=== PATIENT | male | born 1940 | race Caucasian/White ===

== ENCOUNTER 2020-05-16 08:36 | Outpatient (CLI) | payer MEDICARE, SELFPAY ==
--- NOTE | ~2020-05-16 | CT_ITS ---
EXAMINATION: CT shoulder LT wo con DATE: 05/16/2020 09:12 INDICATION: Left shoulder primary osteoarthritis. TECHNIQUE: Computed tomography (CT) of the left shoulder was performed without intravenous contrast. Automated exposure control and iterative reconstruction technique were employed. The dose-length prod uct was 521.10 mGy-cm. COMPARISON: Left shoulder radiographs 09/16/19 FINDINGS: Bone alignment is normal. No fracture. There is severe osteoarthritis of glenohumeral joint including bone volume loss of the glenoid. There is severe acromioclavicular joint osteoarthritis in cluding inferiorly directed osteophytes. There is no asymmetric fatty atrophy of the rotator cuff mus irais bellies. IMPRESSION: 1. Severe polyarticular osteoarthritis. Reviewed, dictated and finalized at location A. ERNESS GUIDE
== END 2020-05-16 08:37 | disposition home or self-care (01) ==
PROVIDERS: PCP Family Medicine; Visit Provider Orthopaedic Surgery
DX: M19.012 Primary osteoarthritis, left shoulder (principal)
CPT/HCPCS: 73200

== ENCOUNTER 2020-06-05 10:33 | Observation (INO) | payer MEDICARE, SELFPAY ==
[2020-06-05] VITALS (17 sets, daily range): BP systolic 92–129; BP diastolic 54–92; PULSE 59–78; RESP 14–20; TEMP 36.4–36.8; O2SAT 96–100; BMI 33.0
--- NOTE | ~2020-06-05 | US_ITS ---
EXAMINATION: US right upper quadrant DATE: 06/05/2020 14:57 INDICATION: Abnormal liver function tests. Alcohol abuse. Protuberant abdomen. TECHNIQUE: Multiple grayscale and Doppler ultrasound images of the abdomen were obtained. COMPARISON: None FINDINGS: The pancreatic head and body are normal in appearance. The pancreatic tail is not visualized. Liver has normal contour, with no definitive surface nodularity. There is increased parenchymal echogenicit y and coarsened echotexture consistent with diffuse hepatic steatosis. No liver lesion identified. N o intrahepatic biliary duct dilation suspected. Portal venous flow was seen in the hepatopetal, anthony l direction and has normal Doppler waveform. There is wall thickening measuring up to 5 mm of the flu id-filled but nondilated gallbladder. No cholelithiasis. Sonographic Brice sign was reported as nega tive by the clay grinder. Trace amount of pericholecystic fluid at the gallbladder fossa. Common bile duct measures 4 mm in diameter which is normal. The visualized proximal inferior vena cava is normal. Visualized portions of the right kidney demonstrate normal echogenicity and contour with no hydronep hrosis. IMPRESSION: 1. Diffuse hepatic steatosis without definitive surface nodularity to suggest cirrhosis 2. Gallbladder wall thickening and trace amount of pericholecystic fluid but without gallbladder dila tion, gallstones or sonographic Brice's to suggest acute cholecystitis. Differential would include m arrow edema related to liver disease, heart failure, renal failure or other generalized edema forming states, chronic cholecystitis or less likely acute acalculus cholecystitis. If there is clinical con cern for the latter could consider HIDA scan for further evaluation. 3. No intra or extra hepatic biliary ductal dilation. Reviewed, dictated and finalized at location . NATAL SPECIALIST IMPRESSION: 1. Diffuse hepatic steatosis without definitive surface nodularity to suggest c irrhosis 2. Gallbladder wall thickening and trace amount of pericholecystic fluid but wi thout gallbladder dilation, gallstones or sonographic Brice's to suggest acute cholecystitis. Differential would include marrow edema related to liver diseas e, heart failure, renal failure or other generalized edema forming states, air bag curer aditya cholecystitis or less likely acute acalculus cholecystitis. If there is cli nical concern for the latter could consider HIDA scan for further evaluation. 3. No intra or extra hepatic biliary ductal dilation.
--- NOTE | ~2020-06-05 | XR_ITS ---
EXAMINATION: XR chest 1V portable EXAM DATE: 06/05/2020 11:01 INDICATION: Chest pain, low blood pressure. TECHNIQUE: Portable AP frontal chest x-ray was obtained. Comparison is made to prior examination from 07/30/2016. FINDINGS: Sternotomy wires are present without findings to suggest sternal dehiscence. Mild cardiomeg sumeet. There is pulmonary vascular congestion. There is indistinct reticulation with a bibasal predomin ance which may indicate pulmonary edema. Small left pleural effusion. Pneumonia not excludable. There is no pneumothorax suspected. There are mild bony degenerative changes. IMPRESSION: 1. Congestive changes, possible mild CHF exacerbation. 2. Infection not excludable. Reviewed, dictated and finalized at location A. UDER OPERATOR HORIZONTAL
--- NOTE | 2020-06-05 10:36 | ED.ARRPALP ---
HPI - Arrhythmia/Palpitations General Chief Complaint: Arrhythmia/Palpitations Stated Complaint: svt Source: patient, family and EMS Mode of arrival: EMS History of Present Illness HPI narrative: Patient was sitting in the kitchen suddenly started having left chest pain, diaphoretic all over with nausea and feeling like he would like to have a bowel movement. EMT arrived, monitor showing SVT at 206 bpm, adenosine 6 mg and 12 mg given, no response, cardioversion 100 J, converted to normal sinus rhythm. EKG showing ST elevation in aVL, marked ST depression in the lateral leads and inferior leads. STEMI was called immediately. Repeated EKG on arrival to the emergency room showed normal sinus rhythm, first-degree heart block, no ST elevation, slight ST depression in the lateral leads. Related Data Home Medications Medication Instructions Recorded Confirmed aspirin 325 mg tablet 325 mg PO DAILY 06/17/19 03/17/20 cholecalciferol (vitamin D3) 125 5,000 unit PO DAILY 06/17/19 03/17/20 mcg (5,000 unit) capsule cyanocobalamin (vitamin B-12) 5,000 mcg PO DAILY 06/17/19 03/17/20 5,000 mcg capsule lisinopril 20 mg tablet 20 mg PO DAILY 06/17/19 03/17/20 metoprolol succinate 25 mg 12.5 mg PO BID tablet 06/17/19 03/17/20 tablet,extended release 24 hr Allergies Allergy/AdvReac Type Severity Reaction Status Date / Time No Known Allergies Allergy Mild Verified 06/05/20 10:43 Review of Systems Review of Systems: Narrative: CONSTITUTIONAL: Denies fever, chills, or sweats. EYES: Denies visual changes, redness, or discharge. ENT: Denies rhinorrhea, congestion, sore throat, or otalgia. CARDIOVASCULAR: Denies chest pain, palpitations, or edema. RESPIRATORY: Denies cough or dyspnea. GASTROINTESTINAL: Denies abdominal pain, nausea, vomiting, or diarrhea. GENITOURINARY: Denies dysuria or hematuria. SKIN: Denies rash or itching. MUSCULOSKELETAL: Denies back pain, joint pain, or myalgia. NEUROLOGIC: Denies headache, numbness, or weakness. PSYCHIATRIC: Denies anxiety or depression. [facility] Past Medical History Medical History ACL tear Atherosclerotic heart disease of [place] coronary artery with other forms of angina pectoris Encounter for immunization (04/17/18) Essential (primary) hypertension Mixed hyperlipidemia Obesity (BMI 30.0-34.9) Osteoarthritis of left shoulder Primary pulmonary hypertension Spinal stenosis, lumbar region with neurogenic claudication Testicular hypofunction Type 2 diabetes mellitus with hyperglycemia Unspecified atrial fibrillation Unspecified hearing loss Unspecified sleep apnea Surgical History Surgical History History of aortic valve repair History of cataract extraction (~11/05/17) History of hernia repair (~2007) History of knee replacement (~2003) History of maze procedure Hx of arthroscopy of knee (~1968) Hx of decompressive lumbar laminectomy (~11/01/14) Family History Family History Father Cerebrovascular accident Atrial fibrillation, chronic Arthritis Mother Diabetes mellitus Vascular disease Sibling Atrial fibrillation, chronic Kidney disease Social History Social History Smoking status: Never smoker Alcohol intake: current Exam Narrative: Exam Narrative: General appearance: Well-developed, well-nourished Skin: Normal color Head: Normocephalic, nontraumatic Eyes: Clear conjunctiva ENT: Oropharynx normal, ears normal, nose normal Neck: Supple, nontender Chest and respiratory: Airway patent, no respiratory distress, no accessory muscle use Heart: Regular rate/rhythm Abdomen: Soft, nontender, no organomegaly, quiet bowel sounds Vascular: Normal peripheral pulses, normal capillary refill. Musculoskeletal: Normal range of motion, nontender back Neurologic: Alert and orient
--- NOTE | 2020-06-05 10:37 | PC.NURSE ---
EKG done at 1035, shown to YANA
--- NOTE | 2020-06-05 10:41 | ECG_ITS ---
Measurements Intervals [place] Rate: 63 P: 75 MA: 263 QRS: 72 QRSD: 90 T: 79 QT: 472 QTc: 483 Interpretive Statements SINUS RHYTHM WITH FIRST DEGREE AV BLOCK VENTRICULAR PREMATURE COMPLEX ST ABNORMALITY IN ANTEROLAT/HIGH LAT LEADS- CONSIDER ISCHEMIA ABNORMAL ECG Electronically Signed On 06-05-2020 17:10:56 TELECOMMUNICATIONS EQUIPMENT INSTALLER by Kaden Cast D.O.
[2020-06-05 11:00] LABS: Basophils Absolute Auto 0.1 K/mm3 (0.0-0.1); Basophils Percent Auto 0.7 % (0.2-1.2); Eosinophils Absolute Auto 0.3 K/mm3 (0-0.3); Eosinophils Percent Auto 3.5 % (0-4.4); Hemoglobin 12.5 g/dL (14.0-18.0); Immature Granulocyte Absolute 0.07 K/mm3 (0.00-0.031); Immature Granulocyte Percent A 0.8 % (0-0.5); Lymphocytes Absolute Auto 2.23 K/mm3 (0.9-3.2); Lymphocytes Percent Auto 26.3 % (18.3-44.2); Mean Corpuscular HGB Conc 33.8 g/dl (32-36); Mean Corpuscular Hemoglobin 33.2 pg (26-34); Mean Corpuscular Volume 98.1 fl (80-100); Mean Platelet Volume 9.7 fl (7.4-10.4); Monocytes Absolute Auto 0.9 K/mm3 (0.1-0.6); Monocytes Percent Auto 10.3 % (2.6-8.5); Neutrophils Absolute Auto 4.9 K/mm3 (1.3-6.7); Neutrophils Percent Auto 58.4 % (45.5-73.1); Platelet Count Result 202 k/mm3 (150-375); Red Blood Count 3.77 M/mm3 (4.6-6.20); Red Cell Distribution Width 12.4 % (11.5-14.5); White Blood Count 8.5 K/mm3 (4.5-10.0)
[2020-06-05 11:09] LABS: Prothrombin Time 14.1 Seconds (11.1-14.7)
[2020-06-05 11:12] LABS: Alanine Aminotransferase 72 U/L (4-50); Alkaline Phosphatase 81 U/L (38-126); Anion Gap 9 mmol/L (8-16); Aspartate Amino Transferase 62 U/L (17-59); Bilirubin,Total 0.7 mg/dL (0.2-1.3); Blood Urea Nitrogen 18 mg/dL (9-20); Calcium 8.3 mg/dL (8.4-10.2); Carbon Dioxide 27 mmol/L (22-30); Chloride 100 mmol/L (98-107); Cholesterol 164 mg/dL (0-200); Estimated Glomerular Filt Rate > 60; Glucose 309 mg/dL (75-110); HDL Direct 53 mg/dL; Sodium 136 mmol/L (137-145); Triglycerides 107 mg/dL (<150)
[2020-06-05 11:23] LABS: LDL Cholesterol Direct 87 mg/dL
[2020-06-05 11:27] LABS: Troponin I 0.038 ng/mL (0.000-0.034)
--- NOTE | 2020-06-05 13:01 | PM.IMHP ---
H&P: HPI History of Present Illness Date/Time: 06/05/20 13:01 Chief complaint: STV/CP Narrative: Aj Palmer is a 80 year old male with a history of subacute bacterial endocarditis,bioprosthetic aortic valve replacement, and atrial fibrillation was in his usual state of health until the morning of June 05. He followed his usual routine. Got out of bed. Dressed. Make coffee. Put the laundry in the washer. Wiped down the counter tops. he said down at the kitchen table to enjoys coffee. He then experienced sudden onset of diaphoresis and foggy brain . He had [id number] left pectoral to substernal chest discomfort described as an ache. No associated shortness of breath palpitations syncope or presyncope. His , who is a retired nurse, call 911. Upon their arrival They found him to be in supraventricular tachycardia at 205 beats per minute. paramedics started an IV and gave him 6 mg of adenosine followed by 12 mg of adenosine. Because he field cardiovert and he remains symptomatic he underwent synchronized cardioversion with 100 joules. He converted back to sinus rhythm. His initial EKG was thought show some ST elevation in 1 AVL and depression in inferior and lateral leads. Repeat EKG however showed only mild inferolateral ST depression. Although initial STEMI was called, it was canceled after cardiology reviewed his EKG. After the cardioversion he remained asymptomatic. 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 Prior to his cardiac surgery in 2017, he was treated with 6 weeks of ceftriaxone and doxycycline. Preoperative coronary angiogram revealed no significant coronary atherosclerosis. he has never been a smoker. However he does drink 6-9 beers per day at least 6 days per week. He never drinks at home but only while out socializing. He plays golf multiple times per week and drinks up to 9 beers on those days. He has never experienced alcohol withdrawal, including no tremors sweats nausea diarrhea anxiety confusion or seizures. 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 Type 2 diabetes mellitus with hyperglycemia Unspecified atrial fibrillation Unspecified hearing loss Unspecified sleep apnea Surgical History Surgical History History of aortic valve repair History of cataract extraction (~11/05/17) History of hernia repair (~2007) History of knee replacement (~2003) History of maze procedure Hx of arthroscopy of knee (~1968) Hx of decompressive lumbar laminectomy (~11/01/14) Family History Family History Father Cerebrovascular accident Atrial fibrillation, chronic Arthritis Mother Diabetes mellitus Vascular disease Sibling Atrial fibrillation, chronic Kidney disease Social History Social History Smoking status: Never smoker Alcohol intake: current Drinks per week: 6 Substance use: never Substance use type: does not use Meds Home Medications and Allergies Home Medications Medication Instructions Recorded Confirmed Type aspirin 325 mg tablet 325 mg PO DAILY 06/17/19 06/05/20 History chol
--- NOTE | 2020-06-05 13:13 | ADMGEN ---
This patient, Aj Palmer, was admitted to IMU Room 202-01. Patient/family oriented to hospital policies and general routines including ID bracelet, bed and alarms, visiting hours, pain management, procedures, bathroom and other care routines, personal items, smoking policy, room service/diet, and visiting hours. Information on how to activate the Rapid Response Team has been discussed. Patient/Family are encouraged to report perceived risks to care and to ask questions if they do not understand what they are told or what they should do.
[2020-06-05 14:15] LABS: Troponin I 0.223 ng/mL (0.000-0.034)
[2020-06-05 14:41] LABS: CRP < 0.5 mg/dL (<1.0); Magnesium 1.9 mg/dL (1.6-2.3)
[2020-06-05 14:50] LABS: Iron 140 ug/dL (49-181)
[2020-06-05 14:59] LABS: Percent Iron Saturation 38 % (20-50)
[2020-06-05 15:21] LABS: Hepatitis B Surface Antigen Negative (Negative)
[2020-06-05 15:46] LABS: Folic Acid > 20.0 ng/mL (2.76->20); Vitamin B12 > 1000.0 pg/mL (239-931)
[2020-06-05 15:46] LABS: HAV RESULT Negative (Negative); Hepatitis B Core IgM Result Negative (Negative)
[2020-06-05 15:57] LABS: Hepatitis C Virus Antibody Negative (Negative)
[2020-06-05 16:44] LABS: Glucose Point of Care 138 (65-105)
[2020-06-05] MEDS: metFORMIN HCL 500 MG TABLET PO (17:12)
[2020-06-05] MEDS: ENOXAPARIN 40 MG/0.4 ML SYRINGE SUB-Q (17:13)
[2020-06-05 17:18] LABS: Troponin I 0.532 ng/mL (0.000-0.034)
[2020-06-05 18:31] LABS: Immature Reticulocyte Fraction 12.6 % (3.0-15.9); Reticulocyte Hemoglobin Conten 37.6 pg (28.2-35.7); Reticulocyte Percent 1.66 % (0.7-4.3); Reticulocytes Absolute 0.06 B/L (32.2-175.7)
[2020-06-05 20:02] LABS: Glucose Point of Care 126 (65-105)
[2020-06-05] MEDS: METOPROLOL SUCCINATE EXT REL 50 MG TABCR PO (20:35)
[2020-06-06] VITALS (17 sets, daily range): BP systolic 122–152; BP diastolic 66–83; PULSE 58–75; RESP 18–22; TEMP 35.9–37; O2SAT 97–99
--- NOTE | 2020-06-06 | ECHO_ITS ---
Patient Info Name: Aj Palmer Age: 80 years : 1940 Gender: Male Ht: 70 in Wt: 230 lbs BSA: 2.30 m2 HR: 72 bpm BP: 136 / 74 mmHg Heart Rhythm: Sinus Rhythm Technical Quality: Good Exam Date: 06/06/2020 8:28 AM Exam Location: [facility] Patient Status: Inpatient Admit Date: 06/05/2020 Staff Ordering Physician: Wesley Hou MD C 13 Catapult Operator: Amy Pimentel RDCS Attending Provider: Evangelista Estes MD Referring Physician: Ameya SMITH; Exam Type: CA echo doppler color flow Study Info Indications - BIOPROSTHESTIC AORTIC VALVE - [place] PSVT Complete two-dimensional, color flow and Doppler transthoracic echocardiogram is performed. Summary 1. Complete two-dimensional, color flow and Doppler transthoracic echocardiogram is performed. 2. Left ventricular chamber dimension is normal. 3. Left ventricular systolic function is normal, estimated at 60-65%. 4. Left atrial chamber dimension is mildly enlarged. 5. Aortic valve is a normally appearing and functioning bioprosthetic device. Left Ventricle Left ventricular chamber dimension is normal. Left ventricular systolic function is normal, estimated at 60-65%. Left ventricular septal wall motion is normal. The left ventricular diastolic function is normal. Right Ventricle Right ventricular chamber dimension is normal. Left Atria Left atrial chamber dimension is mildly enlarged. Right Atria Right atrial chamber dimension is normal. Aortic Valve Aortic valve is a normally appearing and functioning bioprosthetic device. Pulmonic Valve The pulmonic valve is not well visualized. Mitral Valve The mitral valve has normal leaflets. There is mild to moderate mitral valve regurgitation. The mitral valve annulus is mildly calcified. Tricuspid Valve The tricuspid valve leaflets are normal. There is trace tricuspid valve regurgitation. Pericardium/Pleural The pericardium appears normal. Aorta The aortic root size at the sinus of Valsalva is normal. Left Ventricular Outflow Tract Name Value Normal LVOT 2D LVOT Diameter 2.0 cm LVOT Doppler LVOT Peak Gradient 6 mmHg LVOT Mean Gradient 3 mmHg LVOT VTI 31 cm LVOT VTI/AV VTI Ratio 0.5 LVOT Stroke Volume 98 ml LVOT CO 5.5 l/min LVOT CI 2.4 l/min/m2 Pulmonic Valve Name Value Normal RVOT Doppler RVOT Peak Gradient 2 mmHg PV Doppler PV Peak Gradient 3 mmHg Mitral Valve Name Value
[2020-06-06 04:28] LABS: Hematocrit 35.7 % (42.0-52.0); Hemoglobin 12.3 g/dL (14.0-18.0); Mean Corpuscular HGB Conc 34.5 g/dl (32-36); Mean Corpuscular Hemoglobin 32.4 pg (26-34); Mean Corpuscular Volume 93.9 fl (80-100); Mean Platelet Volume 9.4 fl (7.4-10.4); Platelet Count Result 202 k/mm3 (150-375); Red Cell Distribution Width 12.2 % (11.5-14.5); White Blood Count 8.3 K/mm3 (4.5-10.0)
[2020-06-06 04:44] LABS: Alanine Aminotransferase 64 U/L (4-50); Albumin Level 3.8 g/dL (3.5-5.1); Alkaline Phosphatase 66 U/L (38-126); Anion Gap 6 mmol/L (8-16); Aspartate Amino Transferase 35 U/L (17-59); Bilirubin,Total 0.5 mg/dL (0.2-1.3); Blood Urea Nitrogen 14 mg/dL (9-20); Calcium 8.8 mg/dL (8.4-10.2); Carbon Dioxide 30 mmol/L (22-30); Chloride 100 mmol/L (98-107); Estimated CRCL calculation 71 ml/min; Estimated Glomerular Filt Rate > 60; Glucose 122 mg/dL (75-110); Sodium 136 mmol/L (137-145)
[2020-06-06 07:14] LABS: Glucose Point of Care 130 (65-105)
[2020-06-06 08:36] LABS: Free T4 Free Thyroxine Reflex 1.01 ng/dL (0.78-2.19)
[2020-06-06] MEDS: CYANOCOBALAMIN 1,000 MCG TABLET 5000 MCG PO (09:17)
[2020-06-06] MEDS: THIAMINE HCL 100 MG TABLET PO (09:17)
[2020-06-06] MEDS: ASPIRIN 325 MG TABLET PO (09:17)
[2020-06-06] MEDS: THERAPEUTIC MULTIVITAMINS/MINERALS TAB (*BKC) 1 TABLET PO (09:17)
[2020-06-06] MEDS: CHOLECALCIFEROL 1,000 UNITS TABLET 5000 UNITS PO (09:17)
[2020-06-06] MEDS: FOLIC ACID 1 MG TABLET PO (09:18)
[2020-06-06] MEDS: lisinopriL 20 MG TABLET PO (09:18)
[2020-06-06] MEDS: buPROPion HCL XL (24 HR) 150 MG TABCR 300 MG PO (09:18)
[2020-06-06] MEDS: metFORMIN HCL 500 MG TABLET PO ×2 (09:18→13:17)
[2020-06-06] MEDS: ATORVASTATIN 20 MG TABLET PO (09:18)
[2020-06-06 10:01] LABS: Total Triiodothyronine (T3) 1.27 NG/ML (0.97-1.69)
[2020-06-06 11:59] LABS: Glucose Point of Care 182 (65-105)
--- NOTE | 2020-06-06 12:16 | PM.CNCAR ---
Assessment and Plan Additional Plan 80-year-old man with history of aortic valve endocarditis several years ago leading to the need for aortic valve replacement. He has a bioprosthetic valve and it seems to be functioning normally by recent echocardiography. He did have a significant cardiomyopathy at the time of surgery but that appears to have recovered by subsequent echoes his recent ejection fractions have been normal. According to the record he is known not to have any coronary artery disease at least a couple of years ago when he had his aortic valve replacement. He presents yesterday with symptomatic wide QRS tachycardia. The heart rate was in the vicinity of 250 beats per minute and was a monomorphic wide QRS tachycardia which did not respond to adenosine but did respond to DC cardioversion. Since then he has been asymptomatic. It is of course my concern that this was a episode of ventricular tachycardia and hopefully the electrocardiogram from the field which I am describing can be located. I will increase his beta-loltia dosage empirically to 50 mg q.12 hours and review today's echocardiogram. If he is known to have good LV function and no coronary disease then I would start out treating this with a more aggressive dose of beta-lolita and consulted asic engineer either at [place] are at [facility] for further evaluation of this. Hopefully the staff can locate the electrocardiogram that I am describing which would be very important for electrophysiological consult in to review Gary Chopra MD [facility] History of Present Illness History of Present Illness Consult date/time: 06/06/20 12:16 Reason For Visit: STV/CP Narrative: This is a pleasant 80-year-old man I am seeing at the request of the hospitalist because of arrhythmias with which she presented yesterday around mid day through the emergency room. The patient states he was in his usual state of good health was having a pleasant morning preparing coffee in his kitchen and doing other normal activities when suddenly he felt unwell. He states that he noticed the sense of lightheadedness and diaphoresis he states he was sweating significantly and obviously knew something was wrong. His who is a registered nurse who is a retired tried to take his pulse and found to be extremely fast where she could not count it and so she became of course concerned and called 911. EMS arrived at his home and found him to be in are very rapid regular tachycardia. They called this arrhythmia SVT and thusly treated him with adenosine 6 mg and then 12 mg with no response. He then was cardioverted with 100 joules which restored normal sinus rhythm. He was then transported to the emergency room. After being cardioverted he states he very rapidly felt much better. He arrived in the emergency room and the electrocardiogram after cardioversion showed some diffuse ST and T changes at which time the ED staff were declaring this to be an ST-elevation NM. I happened to be here in the hospital and I looked at the tracings and did not believe there was an ST-elevation NM. As time went on he recover the ST and T changes resolved and he was asymptomatic. I did see the rhythm strip from the EMS which showed a monomorphic wide QRS tachycardia. It was therefore my concern that this may not have been supraventricular tachycardia given the lack of response to a dentist in and requiring electrical termination. Patient is asymptomatic since being admitted states he feels well and has no other complaints today. He does have a significant cardiac history with a history of aortic valve disease he was found in 2017 to have atrial fibrillation. He was found to have severe aortic valve regurgitation which was felt to be due to partially treated bacterial endocarditis. After that was treated he underwent aortic valve replacement in September of 2016 at [facility] by Dr. Bonilla who also performed an intraoperative Maze
--- NOTE | 2020-06-06 13:50 | WPDCARDPROC ---
Cardiac Cath Procedure Note Date of procedure:: 06/06/20 Performing physician:: Gary Chopra MD Indication:: non ST-elevation MS
--- NOTE | 2020-06-06 14:42 | PM.PNCARD ---
Progress Note: A&P Additional Plan 80-year-old white male with: Valvular heart disease status post aortic valve replacement 3 years ago with previously depressed LV function which recovered following surgery. Patient now presents abruptly with wide QRS tachycardia and the need to be electrically cardioverted in the field. Will plan on coronary angiography tomorrow to ensure there is no ischemic basis to these arrhythmias. Following that procedure electrophysiology consultation will be arranged if there is no ischemic burden Gary Chopra MD [facility] Subjective Date/time seen: Date of service: 06/06/20 14:42 Interval history: Follow-up visit in this 80-year-old man with a history of aortic valve replacement in 2017 and significant left ventricular dysfunction which improved following valve replacement. No coronary artery disease at that time. Patient presented with an episode of symptomatic wide QRS tachycardia most concerning for VT. Discussion with the patient again this afternoon after the echocardiogram has been read. He still has normal left ventricular systolic function and a normally functioning aortic valve bioprosthesis. The wide QRS tachycardia that had to be terminated electrically would of course raise the Specter of ischemic mediated arrhythmias and as such a follow-up angiogram should be recommended. While he is in the hospital I am going to recommend arranging for that to be done tomorrow morning. Depending on those findings referral to an slitter and rewinder will be recommended. Objective Data Vital Signs Vital Signs: Vital Signs - 24 hr 06/05/20 16:00 06/05/20 18:00 06/05/20 20:00 Temperature 36.8 C Pulse Rate 64 69 72 Respiratory Rate 18 18 Blood Pressure 115/66 123/65 Pulse Oximetry 97 97 06/05/20 20:02 06/05/20 20:35 06/05/20 22:00 Temperature 36.7 C Pulse Rate 66 68 68 Respiratory Rate 18 Blood Pressure 123/65 Pulse Oximetry 97 06/05/20 23:09 06/05/20 23:12 06/06/20 00:00 Temperature 37.0 C Pulse Rate 66 78 69 Respiratory Rate 18 14 22 H Blood Pressure 123/65 129/74 Pulse Oximetry 97 96 98 06/06/20 01:40 06/06/20 04:00 06/06/20 06:00 Temperature 36.5 C Pulse Rate 69 58 L 65 Respiratory Rate 22 H Blood Pressure 136/74 Pulse Oximetry 99 06/06/20 07:05 06/06/20 08:00 06/06/20 12:00 Temperature 36.0 C L 36.6 C Pulse Rate 66 67 63 Respiratory Rate 22 H 20 Blood Pressure 122/81 152/72 H Pulse Oximetry 97 99 Intake/Output Intake/Output: Intake & Output 06/03/20 06/04/20 06/05/20 06/06/20 23:59 23:59 23:59 23:59 Intake Total 240 Output Total 2801 899 Balance -2380 -803 Meds/Results Medications: Active Medications Generic Name Dose Route Start Last Admin Trade Name Freq PRN Reason Stop Dose Admin Acetaminophen 1,000 mg 06/05/20 14:02 Acetaminophen 500 Mg Tablet PO Q6H PRN Mild to Moderate Pain Aspirin 325 mg 06/06/20 09:00 06/06/20 09:17 Aspirin 325 Mg Tablet PO 325 mg DAILY RADU Administration Atorvastatin Calcium 20 mg 06/06/20 09:00 06/06/20 09:18 Atorvastatin 20 Mg Tablet PO 20 mg DAILY RADU Administration Bupropion HCl 300 mg 06/06/20 09:00 06/06/20 09:18 Bupropion Hcl Xl (24 Hr) 150 Mg Tabcr PO 300 mg QAM RADU Administration Cyanocobalamin 5,000 mcg 06/06/20 09:00 06/06/20 09:17 Cyanocobalamin 1,000 Mcg Tablet PO 5,000 mcg QAM RADU Administration Dextrose 12.5 gm 06/05/20 15:08 Dextrose 50% 25 Gm/50 Ml Syringe IV PUSH PRN PRN Hypoglycemia Protocol Enoxaparin Sodium 40 mg 06/05/20 18:00 06/05/20 17:13 Enoxaparin 40 Mg/0.4 Ml Syringe SUB-Q 40 mg QPM RADU Administration Folic Acid 1 mg 06/06/20 09:00 06/06/20 09:18 Folic Acid 1 Mg Tablet PO 1 mg DAILY RADU Administration Glucagon 1 mg 06/05/20 15:08 Glucagon For Inj 1 Mg Vial IM PRN PRN Hypoglycemia Protocol Glucose 15 gm 06/05/20 15:08
--- NOTE | 2020-06-06 16:17 | P.PNIM_ITS ---
Progress Note: A&P Assessment and Plan (1) SVT (supraventricular tachycardia): Code(s): I47.1 - Supraventricular tachycardia Status: Acute Assessment and Plan: * resolved after 100 joule cardioversion * alcohol abuse may be contributing * primary myocardial ischemia is unlikely but has to be ruled out * thyroid disease is clinically unlikely and TSH is normal * encouraged moderation of alcohol intake * increase metoprolol from 25 to 50 mg daily * cardiology concerned may be V-tach rather than SVT and cardiac catheterization planned for 06/07 to rule out ischemia as cause (2) History of aortic valve repair: Code(s): Z98.890 - Other specified postprocedural states; Z86.79 - Personal history of other diseases of the circulatory system Status: Acute Assessment and Plan: * no signs or symptoms of valvular insufficiency Repeat echo EF 60% with normal functioning bioprosthetic valve and no wall motion abnormalities (3) Unspecified atrial fibrillation: Code(s): I48.91 - Unspecified atrial fibrillation Status: Acute Assessment and Plan: * No known episodes since 2017 Maze procedure (4) Osteoarthritis of left shoulder: Qualifiers: Osteoarthritis type: post-traumatic Qualified Code(s): M19.112 - Post- traumatic osteoarthritis, left shoulder Code(s): M19.012 - Primary osteoarthritis, left shoulder Status: Chronic Assessment and Plan: * Analgesics prn (5) Alcohol abuse: Code(s): F10.10 - Alcohol abuse, uncomplicated Status: Acute Assessment and Plan: * CIWA protocol with PRN lorazepam * Thiamine folate, MVI * Dr. Hou Discussed need to limit his alcohol intake to no more than 1 serving per 24 hours * He responded that he might be able to cut down to 3 or 4 but not 1 or 2. (6) Controlled type 2 diabetes mellitus: Code(s): E11.9 - Type 2 diabetes mellitus without complications Status: Acute Assessment and Plan: * metformin on hold and monitor sugars * sliding scale aspartate * A1c was 6.8, however he was hyperglycemic at 309 upon presentation * given his history of hyperlipidemia and type 2 diabetes, statin therapy would be appropriate (7) Hypertension: Code(s): I10 - Essential (primary) hypertension Status: Acute Assessment and Plan: * continue lisinopril and metoprolol (8) Anemia: Code(s): D64.9 - Anemia, unspecified Status: Acute Assessment and Plan: * present since at least 2017 * last colonoscopy at age 67 * iron TIBC and blood B12 all normal (9) Abnormal liver enzymes: Code(s): R74.8 - Abnormal levels of other serum enzymes Status: Acute Assessment and Plan: * pattern is atypical for alcohol-induced hepatitis * screen for hepatitis AB and C is negative * ultrasound liver hepatic steatosis with no nodularity of the surface * follow-up lab LFTs approaching normal Subjective Date/time seen: 06/06/20 16:17 Interval history: 80-year-old gentleman with bioprosthetic aortic valve 3 years ago after SBE with normal coronaries at that time presented to the hospital with acute onset tachycardia accompanied by diaphoresis and lightheadedness. Initially felt to be SVT but was wide complex and and converted with cardioversion but not adenosine.. He has had no further symptomatology and feels well. Exam Narrative: Exam Narrative: Blood pressure 152/72 pulse is 62 saturating 93% on room air afebrile HEENT: , PERRL, sclerae nonicteric, N
--- NOTE | 2020-06-06 16:17 | PM.IMPN ---
Progress Note: A&P Assessment and Plan (1) SVT (supraventricular tachycardia): Code(s): I47.1 - Supraventricular tachycardia Status: Acute Assessment and Plan: resolved after 100 joule cardioversion alcohol abuse may be contributing primary myocardial ischemia is unlikely but has to be ruled out thyroid disease is clinically unlikely and TSH is normal encouraged moderation of alcohol intake increase metoprolol from 25 to 50 mg daily cardiology concerned may be V-tach rather than SVT and cardiac catheterization planned for 06/07 to rule out ischemia as cause (2) History of aortic valve repair: Code(s): Z98.890 - Other specified postprocedural states; Z86.79 - Personal history of other diseases of the circulatory system Status: Acute Assessment and Plan: no signs or symptoms of valvular insufficiency Repeat echo EF 60% with normal functioning bioprosthetic valve and no wall motion abnormalities (3) Unspecified atrial fibrillation: Code(s): I48.91 - Unspecified atrial fibrillation Status: Acute Assessment and Plan: No known episodes since 2017 Maze procedure (4) Osteoarthritis of left shoulder: Qualifiers: Osteoarthritis type: post-traumatic Qualified Code(s): M19.112 - Post-traumatic osteoarthritis, left shoulder Code(s): M19.012 - Primary osteoarthritis, left shoulder Status: Chronic Assessment and Plan: Analgesics prn (5) Alcohol abuse: Code(s): F10.10 - Alcohol abuse, uncomplicated Status: Acute Assessment and Plan: CIWA protocol with PRN lorazepam Thiamine folate, MVI Dr. Hou Discussed need to limit his alcohol intake to no more than 1 serving per 24 hours He responded that he might be able to cut down to 3 or 4 but not 1 or 2. (6) Controlled type 2 diabetes mellitus: Code(s): E11.9 - Type 2 diabetes mellitus without complications Status: Acute Assessment and Plan: metformin on hold and monitor sugars sliding scale aspartate A1c was 6.8, however he was hyperglycemic at 309 upon presentation given his history of hyperlipidemia and type 2 diabetes, statin therapy would be appropriate (7) Hypertension: Code(s): I10 - Essential (primary) hypertension Status: Acute Assessment and Plan: continue lisinopril and metoprolol (8) Anemia: Code(s): D64.9 - Anemia, unspecified Status: Acute Assessment and Plan: present since at least 2017 last colonoscopy at age 67 iron TIBC and blood B12 all normal (9) Abnormal liver enzymes: Code(s): R74.8 - Abnormal levels of other serum enzymes Status: Acute Assessment and Plan: pattern is atypical for alcohol-induced hepatitis screen for hepatitis AB and C is negative ultrasound liver hepatic steatosis with no nodularity of the surface follow-up lab LFTs approaching normal Subjective Date/time seen: 06/06/20 16:17 Interval history: 80-year-old gentleman with bioprosthetic aortic valve 3 years ago after SBE with normal coronaries at that time presented to the hospital with acute onset tachycardia accompanied by diaphoresis and lightheadedness. Initially felt to be SVT but was wide complex and and converted with cardioversion but not adenosine.. He has had no further symptomatology and feels well. Exam Narrative: Exam Narrative: Blood pressure 152/72 pulse is 62 saturating 93% on room air afebrile HEENT: , PERRL, sclerae nonicteric, NECK: Supple CHEST: Clear to auscultation.. HEART: NL S1/S2, regular, 2/6 right upper sternal border systolic ejection murmur without radiation ABDOMEN: BS+, soft, nontender, no mass, no bruits EXTREMITIES: No edema, dorsalis pedis posterior tibial 1+ NEUROLOGIC: Alert cooperative no focal deficits. Objective Data Vital Signs Vital Signs: Vital Signs - 24 hr 06/05/20 18:00 06/05/20 20:00 06/05/20 20:02 Te
[2020-06-06 16:34] LABS: Glucose Point of Care 110 (65-105)
[2020-06-06] MEDS: METOPROLOL SUCCINATE EXT REL 50 MG TABCR PO ×2 (17:52→20:21)
[2020-06-06] MEDS: ENOXAPARIN 40 MG/0.4 ML SYRINGE SUB-Q (17:53)
[2020-06-06 20:44] LABS: Glucose Point of Care 180 (65-105)
[2020-06-07] VITALS (19 sets, daily range): BP systolic 122–157; BP diastolic 74–91; PULSE 51–68; RESP 10–20; TEMP 36.6–36.8; O2SAT 95–100
[2020-06-07 05:50] LABS: Alanine Aminotransferase 54 U/L (4-50); Alkaline Phosphatase 65 U/L (38-126); Anion Gap 6 mmol/L (8-16); Aspartate Amino Transferase 29 U/L (17-59); Bilirubin,Total 0.5 mg/dL (0.2-1.3); Blood Urea Nitrogen 16 mg/dL (9-20); Calcium 9.3 mg/dL (8.4-10.2); Carbon Dioxide 32 mmol/L (22-30); Chloride 99 mmol/L (98-107); Estimated CRCL calculation 71 ml/min; Estimated Glomerular Filt Rate > 60; Glucose 138 mg/dL (75-110); Potassium 3.9 mmol/L (3.4-5.0); Sodium 137 mmol/L (137-145)
--- NOTE | 2020-06-07 08:47 | WPDMODSED ---
Moderate Sedation Note-Pt Data Patient Data Allergies Allergy/AdvReac Type Severity Reaction Status Date / Time No Known Allergies Allergy Mild Verified 06/05/20 10:43 Home Medications Medication Instructions Recorded Confirmed Type aspirin 325 mg tablet 325 mg PO DAILY 06/17/19 06/05/20 History cholecalciferol (vitamin D3) 125 5,000 unit PO DAILY 06/17/19 06/05/20 History mcg (5,000 unit) capsule cyanocobalamin (vitamin B-12) 5,000 mcg PO DAILY 06/17/19 06/05/20 History 5,000 mcg capsule lisinopril 20 mg tablet 20 mg PO DAILY 06/17/19 06/05/20 History metoprolol succinate 25 mg 25 mg PO BID tablet 06/17/19 06/05/20 History tablet,extended release 24 hr metformin 500 mg tablet 500 mg PO TID #270 tablet 12/28/19 06/05/20 Rx bupropion HCl 300 mg PO QAM 06/05/20 06/05/20 History Current Medications: Active Medications Acetaminophen (Acetaminophen 500 Mg Tablet) 1,000 mg PO Q6H PRN PRN Reason: Mild to Moderate Pain Aspirin (Aspirin 325 Mg Tablet) 325 mg PO DAILY [facility] Last Admin: 06/06/20 09:17 Dose: 325 mg Documented by: Atorvastatin Calcium (Atorvastatin 20 Mg Tablet) 20 mg PO DAILY [facility] Last Admin: 06/06/20 09:18 Dose: 20 mg Documented by: Bupropion HCl (Bupropion Hcl Xl (24 Hr) 150 Mg Tabcr) 300 mg PO QAM [facility] Last Admin: 06/06/20 09:18 Dose: 300 mg Documented by: Cyanocobalamin (Cyanocobalamin 1,000 Mcg Tablet) 5,000 mcg PO QAM [facility] Last Admin: 06/06/20 09:17 Dose: 5,000 mcg Documented by: Dextrose (Dextrose 50% 25 Gm/50 Ml Syringe) 12.5 gm IV PUSH PRN PRN; Protocol PRN Reason: Hypoglycemia Enoxaparin Sodium (Enoxaparin 40 Mg/0.4 Ml Syringe) 40 mg SUB-Q QPM [facility] Last Admin: 06/06/20 17:53 Dose: 40 mg Documented by: Folic Acid (Folic Acid 1 Mg Tablet) 1 mg PO DAILY [facility] Last Admin: 06/06/20 09:18 Dose: 1 mg Documented by: Glucagon (Glucagon For Inj 1 Mg Vial) 1 mg IM PRN PRN; Protocol PRN Reason: Hypoglycemia Glucose (Glucose Oral Gel 15 Gm Of Glucse In 37.5 Gm Tube) 15 gm PO PRN PRN; Protocol PRN Reason: Hypoglycemia Dextrose (Dextrose 5% 1,000 Ml) 1,000 mls @ 100 mls/hr IVPB PRN PRN; Protocol PRN Reason: Hypoglycemia Insulin Aspart (Insulin Aspart (*Bkc) 100 Units/Ml) 3 - 6 units SUB-Q TIDWM [facility]; Protocol Last Admin: 06/06/20 17:51 Dose: Not Given Documented by: Lisinopril (Lisinopril 20 Mg Tablet) 20 mg PO DAILY [facility] Last Admin: 06/06/20 09:18 Dose: 20 mg Documented by: Lorazepam (Lorazepam Inj (*Crx) 2 Mg/Ml Vial) 1 mg IV PUSH Q4HR PRN PRN Reason: CIWA score 8 or more Metoprolol Succinate (Metoprolol Succinate Ext Rel 50 Mg Tabcr) 50 mg PO Q12HR [facility] Last Admin: 06/06/20 20:21 Dose: 50 mg Documented by: Multivitamins/Calcium (Therapeutic Multivitamins/Minerals Tab (*Bkc)) 1 tablet [facility] Last Admin: 06/06/20 09:17 Dose: 1 tablet Documented by: Thiamine HCl (Thiamine Hcl 100 Mg Tablet) 100 mg PO QAM [facility] Last Admin: 06/06/20 09:17 Dose: 100 mg Documented by: Vitamin D (Cholecalciferol 1,000 Units Tablet) 5,000 units PO DAILY [facility] Last Admin: 06/06/20 09:17 Dose: 5,000 units Documented by: Sedation/Anesthesia: No previous sedation/anesthesia problems (including family history). [facility], [facility] Past Medical History Medical History (Updated 06/05/20 @ 13:56 by Wesley Hou MD) ACL tear Atherosclerotic heart disease of [place] coronary artery with other forms of angina pectoris Encounter for immunization (04/17/18) Essential (primary) hypertension Mixed hyperlipidemia Obesity (BMI 30.0-34.9) Osteoarthritis of left shoulder Primary pulmonary hypertension Spinal stenosis, lumbar region with neurogenic claudication Testicular hypofunction Type 2 diabetes mellitus with hyperglycemia Unspecified atrial fibrillation Unspecified hearing loss Unspecified sleep apnea Surgical History Surgical History History of aortic valve repair History of cataract extraction (~11/05/17) History of hernia repai
--- NOTE | 2020-06-07 08:48 | WPDHPUPDATE1 ---
History and Physical Update Update Date/Time: 06/07/20 08:48 History and Physical has been reviewed, including an updated exam of the patient. There are NO changes in the patient's condition. Risks, benefits, and alternatives have been discussed and questions answered. Patient agrees to proceed with procedure.
[2020-06-07 09:13] LABS: Glucose Point of Care 171 (65-105)
--- NOTE | 2020-06-07 09:17 | WPDCARDPROC ---
Cardiac Cath Procedure Note Date of procedure:: 06/07/20 Performing physician:: Ector Calabrese MD Procedure Procedure note:: CORONARY ANGIOGRAM REPORT DATE OF PROCEDURE: 05/07/2020 INDICATION FOR PROCEDURE: wide complex tachycardia; rule out obstructive CAD BRIEF CLINICAL HISTORY: 80-year-old male with history of aortic valve endocarditis and atrial fibrillation, status post bioprosthetic AVR and Maze in September 2016-operative report not available; history of LV systolic dysfunction with improvement in the LVEF over time, type 2 diabetes mellitus. Patient was brought to [facility] on 06/05/2020 after patient felt diaphoretic and weak. Apparently, patient was found to be in wide complex tachycardia with heart rates into 200s, which did not respond to incremental doses of at nursing, and subsequently required cardioversion. In the ER, his EKG showed sinus rhythm, first-degree AV block, PVCs, nonspecific ST-T abnormality. Patient's troponins were minimally elevated. He was referred for coronary angiogram to rule out any significant obstructive CAD before electrophysiology evaluation. Benefits and risks of the procedure were discussed with the patient in depth, and informed consent was obtained prior to the procedure. Risks of the procedure include but are not limited to vascular complications including groin hematoma, retroperitoneal bleed, vessel perforation; periprocedural AK, cardiac arrhythmias, stroke, contrast induced nephropathy, and . After discussing all the benefits, risks and alternatives, patient was willing to proceed with the procedure. PROCEDURES PERFORMED: 1. Selective left and right coronary angiogram 2. Selective right common femoral angiogram and deployment of Angio-Seal hemostatic device 3. Moderate sedation-CPT code 56983 MODERATE SEDATION: Midazolam 1 mg; fentanyl 24 mcg; Start time 0850 , Stop time 0907 ; Total [id number] time 17 minutes; Manisha Maldonado RN was trained observer for moderate sedation. ACCESS SITE: Right common femoral artery PROCEDURE NOTE: After obtaining informed consent, patient was brought to catheterization lab and prepped and draped in a usual sterile manner. After local anesthesia with lidocaine, right common femoral artery access was taken with micropuncture needle followed by insertion of a 6 [place] sheath. Selective left and right coronary angiogram was performed using 5 [place]ian JL4 and JR4 catheters respectively. Orthogonal views were taken. Left ventriculogram was not performed. Finally, selective right common femoral angiogram was performed followed by successful deployment of Angio-Seal vascular closure device. Patient tolerated procedure well without any immediate procedure related complications. FINDINGS: LEFT MAIN CORONARY: The left main coronary artery is a medium caliber vessel, angiographically significant focal stenosis seen. The vessel bifurcates into LAD and left circumflex branches. LEFT ANTERIOR DESCENDING ARTERY: The LAD is a medium to large caliber vessel in the proximal segment, tapers in the mid and distal segment, and the, the small caliber vessel, diminutive vessel in the distal segment. There are minor irregularities in the proximal and mid LAD. The major diagonal branch is a medium-sized vessel with minor irregularities. LEFT CIRCUMFLEX ARTERY: The left circumflex artery is a medium caliber vessel, continues as OM branch which is tortuous in the distal segment. There are minor irregularities in the proximal segment. RIGHT CORONARY ARTERY: The right coronary artery is a large caliber, dominant vessel with minor irregularities in the proximal segment. The vessel gives rise to medium - large caliber PDA branch and medium caliber PL branch with mildl narrowing at the ostium. LEFT VENTRICULOGRAM: Not performed, LV systolic function preserved on surface echocardiogram. HEMODYNAMIC ASSESSMENT: Opening pressure 161/91 mmHg , closing pressure 162/77 mm
--- NOTE | 2020-06-07 10:20 | SUR.PHASEII ---
Phase II recovery completed at 1020. See PCS for further assessment information.
[2020-06-07] MEDS: ASPIRIN 325 MG TABLET PO (11:39)
[2020-06-07] MEDS: buPROPion HCL XL (24 HR) 150 MG TABCR 300 MG PO (11:40)
[2020-06-07] MEDS: ATORVASTATIN 20 MG TABLET PO (11:40)
[2020-06-07] MEDS: CHOLECALCIFEROL 1,000 UNITS TABLET 5000 UNITS PO (11:40)
[2020-06-07] MEDS: THERAPEUTIC MULTIVITAMINS/MINERALS TAB (*BKC) 1 TABLET PO (11:40)
[2020-06-07 11:41] LABS: Glucose Point of Care 306 (65-105)
[2020-06-07] MEDS: FOLIC ACID 1 MG TABLET PO (11:41)
[2020-06-07] MEDS: lisinopriL 20 MG TABLET PO (11:41)
[2020-06-07] MEDS: CYANOCOBALAMIN 1,000 MCG TABLET 5000 MCG PO (11:41)
[2020-06-07] MEDS: METOPROLOL SUCCINATE EXT REL 50 MG TABCR PO (11:42)
[2020-06-07] MEDS: THIAMINE HCL 100 MG TABLET PO (11:42)
[2020-06-07] MEDS: INSULIN ASPART (*BKC) 100 UNITS/ML SUB-Q (11:46)
[2020-06-07] MEDS: SODIUM CHLORIDE 0.9% IV 1,000 ML 125 ML IV CONT (12:41)
--- NOTE | 2020-06-07 14:03 | PM.IMPN ---
Progress Note: A&P Assessment and Plan (1) SVT (supraventricular tachycardia): Code(s): I47.1 - Supraventricular tachycardia Status: Acute Assessment and Plan: No response with adenosine but converted after 100 joule cardioversion. Alcohol abuse may be contributing. Primary myocardial ischemia has been ruled out with essentially normal LHC. Thyroid disease is clinically unlikely and TSH is normal. He was encouraged to moderate alcohol intake. Metoprolol increased from 25 to 50 mg daily. No recurrent episodes by tele. Continue tele. Cardiology concerned may be V-tach rather than SVT and plan for patient to follow up with EP after discharge. Patient will need life vest for sustained VTach. (2) History of aortic valve repair: Code(s): Z98.890 - Other specified postprocedural states; Z86.79 - Personal history of other diseases of the circulatory system Status: Acute Assessment and Plan: No signs or symptoms of valvular insufficiency. Repeat echo EF 60% with normal functioning bioprosthetic valve and no wall motion abnormalities (3) Unspecified atrial fibrillation: Code(s): I48.91 - Unspecified atrial fibrillation Status: Acute Assessment and Plan: No known episodes since 2017 Maze procedure. (4) Osteoarthritis of left shoulder: Qualifiers: Osteoarthritis type: post-traumatic Qualified Code(s): M19.112 - Post-traumatic osteoarthritis, left shoulder Code(s): M19.012 - Primary osteoarthritis, left shoulder Status: Chronic Assessment and Plan: Stable. Plan for surgical repair Jul 2020. Analgesics prn (5) Alcohol abuse: Code(s): F10.10 - Alcohol abuse, uncomplicated Status: Acute Assessment and Plan: CIWA protocol started but remained negative so this has been stopped. PRN lorazepam available. No evidence of withdrawal. Continue Thiamine, folate, MVI. Patient has been educated about the benefits of limiting his alcohol intake to no more than 1 serving per 24 hours (6) Controlled type 2 diabetes mellitus: Code(s): E11.9 - Type 2 diabetes mellitus without complications Status: Acute Assessment and Plan: A1c 6.8. The patient's blood glucose was reviewed on 06/07 Glucose remains well controlled except 306 before lunch today. Continue AccuCheks covering with sliding scale. Hypoglycemia protocol available as needed. Continue current medications. Metformin on hold and monitor sugars. Given his history of hyperlipidemia and type 2 diabetes, statin therapy would be appropriate. Lipitor started. (7) Hypertension: Code(s): I10 - Essential (primary) hypertension Status: Acute Assessment and Plan: Patient's blood pressure was reviewed on 06/07 Blood pressure remains reasonably well controlled. Will continue current medications. continue lisinopril and metoprolol (8) Anemia: Code(s): D64.9 - Anemia, unspecified Status: Acute Assessment and Plan: Present since at least 2017. Last colonoscopy at age 67. Iron TIBC and blood B12 all normal (9) Abnormal liver enzymes: Code(s): R74.8 - Abnormal levels of other serum enzymes Status: Acute Assessment and Plan: Pattern is atypical for alcohol-induced hepatitis. Hepatitis panel negative. Ultrasound showing liver hepatic steatosis with no nodularity of the surface. LFTs improving. (10) DVT prophylaxis: Code(s): Z29.9 - Encounter for prophylactic measures, unspecified Status: Acute Assessment and Plan: SCDs Subjective Date/time seen: 06/07/20 14:03 Interval history: Date of service 06/07 80yo male with bioprosthetic aortic valve 3 years ago after SBE with normal coronaries at that time presented to the hospital with acute onset tachycardia accompanied by diaphoresis and lightheadedness. Initially felt to be SVT but had a wide complex and and
--- NOTE | 2020-06-07 17:52 | PM.DS ---
DS: Admitting Diagnosis Admitting Diagnosis Admitting Diagnosis: SVT/CP DS: Discharge Diagnosis Discharge Diagnosis (1) SVT (supraventricular tachycardia): Code(s): I47.1 - Supraventricular tachycardia Status: Acute Assessment and Plan: Patient with possible SVT but no response with adenosine but converted after 100 joule cardioversion. Alcohol abuse may be contributing. Primary myocardial ischemia has been ruled out with essentially normal LHC. Thyroid disease is clinically unlikely and TSH was normal. He was encouraged to moderate alcohol intake. Metoprolol increased from 25 to 50 mg daily. No recurrent episodes by tele. Cardiology concerned may be V-tach rather than SVT and plan for patient to follow up with EP after discharge. Patient will need life vest for sustained VTach. (2) History of aortic valve repair: Code(s): Z98.890 - Other specified postprocedural states; Z86.79 - Personal history of other diseases of the circulatory system Status: Acute Assessment and Plan: No signs or symptoms of valvular insufficiency. Repeat echo EF 60% with normal functioning bioprosthetic valve and no wall motion abnormalities. (3) Unspecified atrial fibrillation: Code(s): I48.91 - Unspecified atrial fibrillation Status: Acute Assessment and Plan: No known episodes since 2017 Maze procedure. (4) Osteoarthritis of left shoulder: Qualifiers: Osteoarthritis type: post-traumatic Qualified Code(s): M19.112 - Post-traumatic osteoarthritis, left shoulder Code(s): M19.012 - Primary osteoarthritis, left shoulder Status: Chronic Assessment and Plan: Stable. Plan for surgical repair Jul 2020. (5) Alcohol abuse: Code(s): F10.10 - Alcohol abuse, uncomplicated Status: Acute Assessment and Plan: CIWA protocol started but remained negative so this was stopped. PRN lorazepam available. No evidence of withdrawal. We continued Thiamine, folate, MVI. Patient has been educated about the benefits of limiting his alcohol intake to no more than 1 serving per 24 hours (6) Controlled type 2 diabetes mellitus: Code(s): E11.9 - Type 2 diabetes mellitus without complications Status: Acute Assessment and Plan: A1c 6.8. The patient's blood glucose was monitored closely. Glucose remained well controlled mostly. We continued AccuCheks covering with sliding scale. Hypoglycemia protocol available as needed. We continued current medications. Given his history of hyperlipidemia and type 2 diabetes, statin therapy would be appropriate. Lipitor started. (7) Hypertension: Code(s): I10 - Essential (primary) hypertension Status: Acute Assessment and Plan: Patient's blood pressure was monitred closely Blood pressure remained reasonably well controlled. We continued lisinopril and metoprolol (8) Anemia: Code(s): D64.9 - Anemia, unspecified Status: Acute Assessment and Plan: Present since at least 2017. Last colonoscopy at age 67. Iron TIBC and blood B12 all normal (9) Abnormal liver enzymes: Code(s): R74.8 - Abnormal levels of other serum enzymes Status: Acute Assessment and Plan: Pattern is atypical for alcohol-induced hepatitis. Hepatitis panel negative. Ultrasound showing liver hepatic steatosis with no nodularity of the surface. LFTs improving. DS: Summary Hospital Course Reason for hospitalization: 80yo male with bioprosthetic aortic valve 3 years ago after SBE with normal coronaries at that time presented to the hospital with acute onset tachycardia accompanied by diaphoresis and lightheadedness. Initially felt to be SVT but had a wide complex and and converted with cardioversion but not adenosine. Please see H&P for details Hospital Course: As above Status at Discharge Cognitive/behavioral status at discharge: PATIENT IS STABLE FO
== END 2020-06-07 19:25 | disposition home or self-care (01) ==
LOC: ANHED 10:55 → ANHIMU 06-06 02:14 → ANHCPC 06-07 14:01 → ANHIMU 06-10 09:27
PROVIDERS: Internal Medicine; Internal Medicine Cardiovascular Disease; Admitting Provider Family Medicine; Emergency Provider Emergency Medicine; PCP Family Medicine; Visit Provider Internal Medicine
PROC: 4A023N7 Measurement of Cardiac Sampling and Pressure, Left Heart, Percutaneous Approach (ICD-10-PCS; CPT 93452; principal; 2020-06-07 08:30)
DX: I47.1 Supraventricular tachycardia (principal); R07.89 Other chest pain; R11.0 Nausea; I25.10 Atherosclerotic heart disease of native coronary artery without angina pectoris; I10 Essential (primary) hypertension; E78.2 Mixed hyperlipidemia; I48.0 Paroxysmal atrial fibrillation; M19.012 Primary osteoarthritis, left shoulder; F10.10 Alcohol abuse, uncomplicated; E11.9 Type 2 diabetes mellitus without complications; D64.9 Anemia, unspecified; R74.8 Abnormal levels of other serum enzymes; K76.0 Fatty (change of) liver, not elsewhere classified; I27.20 Pulmonary hypertension, unspecified; G47.30 Sleep apnea, unspecified; M48.062 Spinal stenosis, lumbar region with neurogenic claudication; E66.9 Obesity, unspecified; Z68.32 Body mass index [BMI] 32.0-32.9, adult; Z79.82 Long term (current) use of aspirin; Z79.84 Long term (current) use of oral hypoglycemic drugs; Z95.2 Presence of prosthetic heart valve; Z86.79 Personal history of other diseases of the circulatory system
CPT/HCPCS: 36415; 71045; 76705; 80053; 80061; 82607; 82746; 83540; 83550; 83735; 84439; 84443; 84480; 84484; 85025; 85027; 85046; 85610; 85730; 86140; 86705; 86709; 86803; 86850; 86900; 86901; 87340; 93005; 93306; 93458; 96372; 99285; A9270; C1760; C1887; C1894; G0269; G0378; J1644; J1650; J1815; J2250; J3010; J7030; J7040

== ENCOUNTER 2025-02-17 02:48 | Day surgery (SDC) | payer MEDICARE, SELFPAY ==
[2025-02-17] VITALS (8 sets, daily range): BP systolic 92–155; BP diastolic 37–102; PULSE 50–70; RESP 14–18; O2SAT 94–100
--- NOTE | 2025-02-17 | ECHO_ITS ---
Patient Info Name: Aj Palmer Age: 85 years : 1940 Gender: Male Ht: 70 in Wt: 209 lbs BSA: 2.19 m2 HR: 107 bpm BP: 156 / 70 mmHg Heart Rhythm: Atrial Fibrillation Technical Quality: Good Exam Date: 02/17/2025 10:29 AM Patient Status: unknown Admit Date: 02/17/2025 Exam Type: CA echo transesophageal Complete two-dimensional, color flow and Doppler transesophageal study is performed. Silk Screen Painter: Mile Pathak Attending Provider: Gary Chopra MD Summary 1. ARTEMIO performed prior to cardioversion. 2. Left atrium is dilated but no visible thrombus in the atrium or the appendage. Left Ventricle Left ventricular chamber dimension is normal. Right Ventricle Right ventricular chamber dimension is normal. Left Atria Left atrial chamber dimension is severely enlarged. Right Atria Right atrial chamber dimension is moderately enlarged. Aortic Valve There is mild aortic valve sclerosis. Pulmonic Valve The pulmonic valve is not well visualized. Mitral Valve The mitral valve has normal leaflets. Tricuspid Valve The tricuspid valve leaflets are not well visualized. Pericardium/Pleural The pericardium appears normal. Aorta The aortic root size at the sinus of Valsalva is normal. Report Signatures
--- OUTSIDE RECORDS SUMMARY | 2025-02-17 03:00 | XMS_ITS | Referral Summary ---
Author Organization [facility] Address [address] [place] [address] Care Team Providers Care Skiing Teacher Name Role Phone Gary Rivas MD Primary Care Provider [phone] Aurelio Garnica MD Unavailable [phone] Encounters Date Type Department Care Team Description 02/15/2025 Telephone [facility] Cardiology [address] [address] [address] [place] [address] Gary Chopra MD 02/12/2025 9:45 AM CDT Office [facility] [address] [place] [address] [place] [phone] Chelo Fontaine NP Cardiac arrhythmia, unspecified cardiac arrhythmia type (Primary Dx); ICD (implantable cardioverter-defibri llator), dual, in situ 02/12/2025 9:30 AM CDT Ancillary Procedure [facility] [address] [place] [address] [place] [phone] Automatic implantable cardiac defibrillator in situ (Primary Dx); VT (ventricular tachycardia) (HCC); ICD (implantable cardioverter-defibri llator), dual, in situ 01/07/2025 Documentation [facility] [address] [place] [address] [place] [phone] Chelo Fontaine NP 01/07/2025 Telephone [facility] [address] [place] [address] [place] [phone] Chelo Fontaine NP 12/11/2024 Orders Only [facility] [address] [place] [address] [place] [phone] Jefry Hernandez MD 12/03/2024 Telephone [facility] [address] [place] [address] [place] [phone] Jefry Hernandez MD Treated VT; Follow-up (AF burden and VT episode) 11/29/2024 7:45 AM CDT Ancillary Procedure [facility] [address] [place] [address] [place] [phone] ICD (implantable cardioverter-defibri llator), dual, in situ (Primary Dx); VT (ventricular tachycardia) (HCC) from Last 3 Months Allergies No known active allergies Medications multivitamin tablet tabletIndication s:Vitamin Deficiency Prevention Take 1 tablet by mouth once Active cholecalciferol (VITAMIN D-3) 5,000 unit tablet Take 1 tablet (5,000 Units total) by mouth daily Active buPROPion XL (WELLBUTRIN XL) 300 mg 24 hr tablet Take 1 tablet (300 mg total) by mouth every morning Active cyanocobalamin, vitamin B-12, 5,000 mcg tablet, sublingual Place 1 tablet under the tongue daily Active metFORMIN (GLUCOPHAGE) 500 mg tablet Take 1 tablet (500 mg total) by mouth 3 (three) times a day With meals Active atorvastatin (LIPITOR) 20 mg tablet Take 1 tablet (20 mg total) by mouth daily 2 Active sildenafiL (VIAGRA) 100 mg tablet TAKE 1 TABLET BY MOUTH ONCE DAILY NEEDED FOR SEXUAL ACTIVITY. TAKE 30 MINUTES TO 4 HOURS BEFORE ACTIVITY. 2 Active latanoprost (XALATAN) 0.005 % ophthalmic solution INSTILL 1 DROP INTO EACH EYE ONCE DAILY AT BEDTIME. APPOINTMENT REQUIRED FOR FUTURE REFILLS 3 Active lisinopriL (PRINIVIL,ZESTRI L) 20 mg tablet Take 1 tablet by mouth once daily 90 tablet 3 5 Active Jardiance 25 mg tablet 5 Active Xarelto 20 mg tablet 5 Active metoprolol tartrate (LOPRESSOR) 50 mg immediate release tabletIndication s:Essential hypertension Take 1 tablet by mouth twice daily 180 tablet 3 5 Active Active Problems Problem Noted Date Diagnosed Date Pulmonary hypertension 04/04/2021 History of atrial fibrillation 09/05/2020 Primary osteoarthritis of left shoulder 08/15/19 Overview (08/15/2020): Added automatically from request for surgery [id number] ICD (implantable cardioverter-defibrillator), jean-pierre gottlieb, in situ 06/29/2020 Overview (06/29/2020): Medtronic DDD Castleton ICD implanted on 06/28/20 for VT. 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 The patient has significant structural heart disease, with a history of cardiomyopathy and aortic valve replacement. His LV ejection fraction at present is normal. I recommended that the patient undergo placement of a defibrillator for the secondary prevention of sudden cardiac arrest. I explained the risks and benefits, and he would like to proceed. The patient has a Life Vest wearable cardioverter-defibrillator. He reports some palpitations since his discharge from the hospital despite augmented beta- lolita therapy. I recommended that he continue use of his Life Vest. As a failsafe / further protection against recurrent ventricular arrhythmia, I recommended that the patient initiate amiodarone therapy, to be continued until his defibrillator is placed. At this point, I do not know if long-term antiarrhythmic drug therapy will be necessary. From: Thania AE, Makayla NEMESIO, Trae KA, Shayy JEAN III, Jennifer RA, Fernando LS, Maye AM, Jamaal G, Tony SC, Suraj DL, Cici MA, Blaire LK, Saida RL, Tere MH, Nohemy MJ, Marco Antonio LW, Brandon [place]. ACC/AHA/HRS 2008 guidelines for device-based therapy of cardiac rhythm abnormalities: a report of the [place] College [employer]/[place] Heart Association Task Force on Practice Guidelines (Writing Committee to Revise the ACC/AHA/NASPE 2002 Guideline Update for Implantation of Cardiac Pacemakers and Antiarrhythmia Devices). J Am Vik Cardiol 2008;51:e1- 62. Class I: ICD therapy is indicated in patients with structural heart disease and spontaneous sustained VT, whether hemodynamically stable or unstable. (Level of Evidence: B) H/O endocarditis 03/22/2020 H/O cardiomyopathy 03/10/2019 History of maze procedure 10/08/2016 Overview (12/07/2016): History of maze procedure S/P aortic valve replacement with bioprosthetic valve 10/08/2016 Overview (12/07/2016): S/P aortic valve replacement with bioprosthetic valve Paroxysmal atrial fibrillation 10/08/2016 Overview (12/07/2016): Paroxysmal atrial fibrillation Assessment & Plan (01/07/2017 3:20 PM CDT): Had persistent a fib, but after MAZE procedure and while on amiodarone, pt appears to maintain NSR. EKG today = NSR rate 56, Will DC amiodarone and Xarelto; hopefully pt will maintain NSR. Resume ASA In 6 weeks will re-evaluate with a 2 week home monitor. FU w/ me n . Essential hypertension 07/20/2016 Overview (10/19/2016): Essential hypertension Obstructive sleep apnea syndrome 07/20/2016 Overview (10/19/2016): JESUS (obstructive sleep apnea) Resolved Problems Problem Noted Date Diagnosed Date Resolved Date Preoperative cardiovascular examination 09/05/2020 04/04/2021 Cardiomyopathy 10/08/2016 03/10/2019 Overview (12/07/2016): Valvular cardiomyopathy Assessment & Plan (01/07/2017 3:19 PM CDT): Valvular cardiomyopahty, EF fell to 25-30% perioperatively. Likely LV fxn will improve now that AI has been resolved, on meds/metoprolol. Feels better. Daniel check limited Echo for LV fxn. Permanent atrial fibrillation 10/08/2016 01/07/2017 Overview (12/07/2016): Atrial fibrillation, permanent Aortic valve regurgitation 09/19/2016 0 09/05/2020 Aortic valve insufficiency 08/16/2016 0 03/10/2019 Overview (10/19/2016): Nonrheumatic aortic (valve) insufficiency Valvular endocarditis 08/16/20162019 Overview (10/19/2016): Aortic valve endocarditis Assessment & Plan (01/07/2017 3:20 PM CDT): AV SBE dx'd earlier this year, culture-neg. Had severe AI and worsening LV fxn; had biorprosthethhetic AV replacement 09/2016. No evidence of recurrent SBE. Doing better than last Ov; activity level increased and no longer w/ much SOB. Looks good! Reviewed SBE propyl Persistent atrial fibrillation 07/20/2016 05/07/2017 Overview (10/19/2016): Persistent atrial fibrillation USP current use of ant icoagulant therapy 07/20/2016 05/07/2017 Overview (10/19/2016): Chronic anticoagulation Social History Tobacco Use Types Packs/Day Years Used Date Smoking Tobacco: Never Smokeless Tobacco: Never Tobacco Cessation:Counseling Given: Not Answered Alcohol Use Standard Drinks/Week Comments Yes 0 (1 standard drink = 0.6 oz pur e alcohol) AUDIT-C Answer Date Recorded Frequency of Alcohol Consumption Not on file 10/18/2020 Q2: How many drinks containi ng alcohol do you have on a typical day when you are drinking? 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 Gender Identity Not on file Sexual Orientation Not on file Last Filed Vital Signs Vital Sign Reading Time Taken Comments Blood Pressure 126/82 02/12/2025 9:46 AM CDT Pulse 71 02/12/2025 9:46 AM CDT Temperature 37 C (98.6 F) 10/19/2020 8:18 AM CDT Respiratory Rate 18 10/19/2020 8:18 AM CDT Oxygen Saturation 98% 10/02/2024 10:13 AM CDT Inhaled Oxygen Concentration - - Weight 93.9 kg (207 lb) 02/12/2025 9:46 AM CDT Height 172.7 cm (5' 8) 02/12/2025 9:46 AM CDT Body Mass Index 31.47 02/12/2025 9:46 AM CDT Plan of Treatment Not on file Medical Devices Implanted Type Area Crematory Operator Device Identifier Shelf Expiration Date Model / Serial / Lot Medtronic Inc [id number] [address] 2 Chamber Df4 Inline Connector Radiopaque Pacemaker - [id number] - [id number] Implanted:Qty: 1 on 06/28/2020 by Jefry Hernandez MD at [facility] ICD Medtronic Inc [id number] 09/25/2021 [id number] / [id number] / Medtronic Cardiac Rhythm Mgmt [id number] Sprint Quattro Secure 62cm Tripolar Screw In Extendable - [id number] - [id number] Implanted:Qty: 1 on 06/28/2020 by Jefry Hernandez MD at [facility] Lead Medtronic Inc [id number] 12/03/2020 [id number] / [id number] / Medtronic Cardiac Rhythm Mgmt 5076-52 Capsurefix Novus 6.2fr 2mm 52cm Bipolar Screw In Implantable Latex Free - [id number] - [id number] Implanted:Qty: 1 on 06/28/2020 by Jefry Hernandez MD at [facility] Lead Medtronic Inc [id number] 03/18/2022 5076-52 / [id number] / Depuy Orthopaedics Inc [id number] Delta Xtend 4.5mm 42mm Lock Shoulder Glenoid Screw Bone Metaglene - Sn/A - [id number] Implanted:Qty: 1 on 10/18/2020 by Aurelio Garnica MD at [facility] Screw Left: Shoulder Depuy Orthopaed[employer] Inc [id number] 06/13/2025 [id number] / N/A / Depuy Orthopaed[employer] Inc [id number] Delta Xtend 4.5mm 24mm Shoulder Glenoid Screw Bone Metaglene - Sn/A - [id number] Implanted:Qty: 1 on 10/18/2020 by Aurelio Garnica MD at [facility] Screw Left: Shoulder Depuy [employer]ed[employer] Inc [id number] 07/14/2025 [id number] / N/A / Depuy [employer]ed[employer] Inc [id number] Delta Xtend 4.5mm 24mm Shoulder Glenoid Screw Bone Metaglene - Sn/A - [id number] Implanted:Qty: 1 on 10/18/2020 by Aurelio Garnica MD at [facility] Screw Left: Shoulder [employer]uy [employer] Inc [id number] 07/14/2024 [id number] / N/A / Depuy [employer]ed[employer] Inc [id number] Delta Xtend 4.5mm 36mm Lock Shoulder Glenoid Screw Bone Metaglene - Sn/A - [id number] Implanted:Qty: 1 on 10/18/2020 by Aurelio Garnica MD at [facility] Screw Left: Shoulder [employer] Inc [id number] 08/14/2025 [id number] / N/A / Depuy [employer]ed[employer] Inc [id number] Delta Xtend 27mm Cementless Shoulder Standard Component Glenoid Latex Free - Sn/A - [id number] Implanted:Qty: 1 on 10/18/2020 by Aurelio Garnica MD at [facility] Left: Shoulder [employer] Inc [id number] 09/11/2025 [id number] / N/A / Depuy Orthopaed[employer] Inc [id number] Glenosphere Xtend Lateralized 42mm +4mm Standard - Sn/A - [id number] Implanted:Qty: 1 on 10/18/2020 by Aurelio Garnica MD at [facility] Left: Shoulder [employer]uy [employer]ed[employer] Inc [id number] 11/12/2023 [id number] / N/A / Depuy Orthopaed[employer] Inc [id number] Global Unite 12mm 120mm Modular Shoulder Standard Stem Humeral - [id number] Implanted:Qty: 1 on 10/18/2020 by Aurelio Garnica MD at [facility] Left: Shoulder [employer]ed[employer] Inc [id number] 08/14/2030 [id number] / / N/A Depuy [employer]opaed[employer] Inc [id number] Implant Shldr Xtend Mod Brenden 145epi Por Sz1 - Sn/A - [id number] Implanted:Qty: 1 on 10/18/2020 by Aurelio Garnica MD at [facility] Left: Shoulder [employer]uy [employer]ed[employer] Inc 08/14/2030 [id number] / N/A / Depuy Orthopaed[employer] Inc [id number] Delta Xtend 42mm Shoulder +3mm Standard Cup Humeral Polyethylene Latex Free - Sn/A - [id number] Implanted:Qty: 1 on 10/18/2020 by Aurelio Garnica MD at [facility] Left: Shoulder [employer]ed[employer] Inc [id number] 08/14/2025 [id number] / N/A / Procedures Procedure Name Priority Date/Time Associated Diagnosis Comments ECG 12-LEAD Routine 02/12/2025 9:56 AM CDT Cardiac arrhythmia, unspecified cardiac arrhythmia type DEVICE CHECK - IN OFFICE Routine 02/12/2025 9:26 AM CDT VT (ventricular tachycardia) (HCC) ICD (implantable cardioverter-defibri llator), dual, in situ DEVICE CHECK - REMOTE Routine 12/11/2024 7:01 AM CDT DEVICE CHECK - REMOTE Routine 11/29/2024 11:52 AM CDT VT (ventricular tachycardia) (HCC) from Last 3 Months Results * ECG 12 lead (02/12/2025 9:56 AM CDT) us Chelo Fontaine RETAINING ROOM CUTTER ECG ORDERABLES Final Resu lt * DEVICE CHECK - IN OFFICE (02/12/2025 9:26 AM CDT) Anatomical Region Laterality Modality Other Narrative 02/14/2025 2:57 PM CDT Table formatting from the original result was not included. ICD CHECK (IN OFFICE) Patient ID: Aj Palmer is a 85 y.o. male. This patient received a Medtronic ICD. They had a routine in office device interrogation on 02/12/25 Device implant indications: Ventricular tachycardia Interrogation of the patient's device demonstrates the following: Presenting EGM: AFib V paced @ 51 bpm Underlying Rhythm: AFib V sensed rates in 30s Original Device Settings Right Atrium Right Ventricle Sensitivity (mV) 0.3 mV 0.3 mV Pacing Outputs 1.5 V @ 0.4 ms 2.0 V @ 0.4 ms Testing Measurements Right Atrium Right Ventricle Sensitivity (mV) 0.9 mV 14.4 mV Impedence (Ohms) 380 ohms 342 ohms High Voltage Impedence 62 ohms Pace Threshold Not done V @ ms 0.625 V @ 0.4 ms Pacing % 7.4 % 42.8 % Battery Status: 7.2 years to LYLE with Charge Time 3.7 seconds Episodes last 90 days/Comments: AF [place] 46.1%, the patient has been in atrial fibrillation 100% of the time since the middle of November 2024. There was an episode of treated ventricular tachycardia on October 16, 2024 at a rate of 222 beats per minute and terminated with ATP x1. There have been no further treated ventricular arrhythmias noted on today's in office device interrogation. NORMAL DEVICE FUNCTION PROGRAMMED MEDICATIONS: Anti-coagulant(s): Xarelto 20 mg daily Anti-arrhythmic(s): Lopressor 50 mg twice daily PLAN: 1) Medtronic ICD evaluation. 2) Medtronic remote transmission scheduled in 3 months. 3) Programming appropriate for device measurements Rivera Boateng RN uLna Sapp NP [facility] PROCEDURES Final Result * DEVICE CHECK - REMOTE (12/11/2024 7:01 AM CDT) Anatomical Region Laterality Modality Other 12/11/2024 7:01 AM CDT Narrative 12/15/2024 10:40 AM CDT Refer to Epic phone encounter. IFEANYI Bell Device Specialist ' us Jefry Hernandez MD [facility] PRO CEDURES Final Result * DEVICE CHECK - REMOTE (11/29/2024 11:52 AM CDT) Anatomical Region Laterality Modality Other Narrative 12/05/2024 2:03 PM CDT Table formatting from the original result was not included. ICD CHECK (REMOTE) Patient ID: Aj Palmer is a 84 y.o. male This patient received a Medtronic ICD. They had a remote transmission on 11/29/2024. Device implant indications: VT Interrogation of the patient's device demonstrates the following: Presenting EGM: A sense V sense @ 75 bpm Original Device Settings Right Atrium Right Ventricle Sensitivity (mV) 0.3 mV 0.3 mV Pacing Outputs 1.5 V @ 0.4 ms 2.00 V @ 0.4 ms Testing Measurements Right Atrium Right Ventricle Sensitivity (mV) 3.1 mV 13.4 mV Impedence (Ohms) 399 ohms 361 ohms High Voltage Impedence 61 ohms Pace Threshold 0.5 V @ 0.4 ms 0.625 V @ 0.4 ms Pacing % 12.6 % 1.3 % Battery Status: 8.6 years to LYLE with Charge Time 9.9 seconds Episodes last 90 days/Comments: AF [place] <0.1% One treated episode of VT on 10/16. EGM reviewed shows VT at 222 bpm treated with ATP x1 which was successful. NORMAL DEVICE FUNCTION PROGRAMMED Medications: Anti-coagulant(s): Xarelto 20 mg daily Anti-arrhythmic(s): Lopressor 50 mg twice a day PLAN: 1) Medtronic ICD evaluation with treated VT episode. Refer to phone note in epic sent to provider 2) Medtronic remote transmission scheduled in 3 months. 3) Programming appropriate for device measurements Karis Strickland RN Jefry Hernandez MD [facility] PRO CEDURES Final Result from Last 3 Months Insurance [employer] MEDICARE GOLD [facility] REF [employer] MEDICARE GOLD Advance Directives For more information, please contact: [phone] * Full Code (Latest Code Status on File) Date Activated Date Inactivated Comments 10/18/2020 5:26 PM 10/19/2020 5:27 PM Care Teams Skiing Teacher Relationship Specialty Start Date End Date Gary Rivas MD PCP - General 10/12/16 Aurelio Garnica MD [address] [address] Consulting Physician Orthopedic Surgery 10/18/20
--- OUTSIDE RECORDS SUMMARY | 2025-02-17 03:00 | XMS_ITS | Encounter Summary ---
Author Organization [facility] Address [address] [place] [address] Care Team Providers Care Editor City Name Role Phone Gary Rivas MD Primary Care Provider [phone] Gary Rivas MD Primary Care Provider [phone] Aurelio Garnica MD Unavailable [phone] Encounter Details Date Type Department Care Team (Late st Contact Info) Description 08/29/2016 Orders Only [facility] ProviderDc MD [address] [place] [id number] Social History Tobacco Use Types Packs/Day Years Used Date Smoking Tobacco: Never Alcohol Use Standard Drinks/Week Comments Yes 0 (1 standard drink = 0.6 oz pur e alcohol) Sex and Gender Information Value Date Recorded Sex Assigned at Not on file Legal Sex Male 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 Historical Provider [facility] SHA RAMIREZ Final Result documented in this encounter Visit Diagnoses Not on filedocumented in this encounter Care Teams Editor City Relationship Specialty Start Date End Date Gary Rivas MD PCP - General 10/12/16 Gary Rivas MD PCP - General 08/16/16 10/11/16 Aurelio Garnica MD [address] [facility] [address] [place] [address] Consulting Physician Orthopedic Surgery 10/18/20 documented as of this encounter
--- OUTSIDE RECORDS SUMMARY | 2025-02-17 03:00 | XMS_ITS | Encounter Summary ---
Author Organization [facility] Address [address] [place] [address] Care Team Providers Care Boxer Operator Name Role Phone Gary Rivas MD Primary Care Provider [phone] Gary Rivas MD Primary Care Provider [phone] Gary Rivas MD Primary Care Provider [phone] Gary Rivas MD Primary Care Provider [phone] Aurelio Garnica MD Unavailable [phone] Encounter Details Date Type Department Care Team (Late st Contact Info) Description 06/26/2016 Orders Only [facility] ProviderDc MD [address] [place] [address] Social History Tobacco Use Types Packs/Day Years Used Date Smoking Tobacco: Never Assessed Sex and Gender Information Value Date Recorded Sex Assigned at Not on file Legal 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 Historical Provider [facility] SHA RAMIREZ Final Result documented in this encounter Visit Diagnoses Not on filedocumented in this encounter Care Teams Boxer Operator Relationship Specialty Start Date End Date Gary Rivas MD PCP - General 10/12/16 Gary Rivas MD PCP - General 08/16/16 10/11/16 Gary Rivas MD PCP - General 07/26/16 08/15/16 Gary Rivas MD PCP - General 07/18/06 07/25/16 Aurelio Garnica MD [address] [facility] [address] [place] [address] Consulting Physician Orthopedic Surgery 10/18/20 documented as of this encounter
--- OUTSIDE RECORDS SUMMARY | 2025-02-17 03:00 | XMS_ITS | Clinical Summary ---
Author Organization [facility] Address [address] [place] [address] Care Team Providers Care Genetics Nurse Name Role Phone Gary Rivas MD Primary Care Provider [phone] Aurelio Garnica MD Unavailable [phone] Allergies No known active allergies Medications multivitamin [...] 09/05/2020 Primary osteoarthritis of left shoulder 08/15/19 21 Overview (08/15/2020): Added automatically from request for surgery [id number] ICD (implantable cardioverter-defibrillator), jean-pierre gottlieb, in situ 06/29/2020 Overview (06/29/2020): Medtronic DDD Lakeland ICD implanted on 06/28/20 for [facility] [place] (ventricular tachycardia) 06/21/2020 Assessment & Plan (06/21/2020 10:53 AM ABORIGINAL EDUCATION WORKER COORDINATOR): Symptomatic ventricular tachycardia, status post rescue cardioversion. [...] RL, Tere MH, Nohemy MJ, Marco Antonio Brandon [place]. ACC/AHA/HRS 2008 guidelines for device-based therapy of cardiac rhythm abnormalities: a report of the [place] College of Cardiology/[employer] Heart Association Task Force on Practice Guidelines [...] 07/20/2016 05/07/2017 Overview (10/19/2016): Persistent atrial fibrillation detention current use of ant icoagulant therapy 07/20/2016 05/07/2017 Overview (10/19/2016): Chronic anticoagulation Encounters Date Type Department Care Team Description 02/15/2025 Telephone [facility] Cardiology [address] [place] [address] Gary Chopra MD 02/12/2025 9:45 AM CDT Office Visit [facility] [address] [address] Chelo Fontaine NP Cardiac arrhythmia, unspecified cardiac arrhythmia type (Primary Dx); ICD (implantable cardioverter-defibri llator), dual, in situ 02/12/2025 9:30 AM CDT Ancillary Procedure [facility] [address] [place] [address] [phone] Automatic implantable cardiac defibrillator in situ (Primary Dx); VT (ventricular tachycardia) (HCC); ICD (implantable cardioverter-defibri llator), dual, in situ 01/07/2025 Documentation [facility] [address] [place] [address] [phone] Chelo Fontaine, CRYSTAL 01/07/2025 Telephone [facility] [address] [place] [address] [phone] Chelo Fontaine, CRYSTAL 12/11/2024 Orders Only [facility] [address] [place] [address] [phone] Jefry Hernandez MD 12/03/2024 Telephone [facility] [address] [place] [address] [phone] Jefry Hernandez MD Treated VT; Follow-up (AF burden and VT episode) 11/29/2024 7:45 AM CDT Ancillary Procedure [facility] [address] [place] [address] [phone] ICD (implantable cardioverter-defibri llator), dual, in situ (Primary Dx); VT (ventricular tachycardia) (HCC) from Last 3 Months Surgical History Surgery Date Site/Laterality Comments CATARACT EXTRACTION AORTIC VALVE REPLACEMENT 09/26/2016 bioprosthetic AVR and MAZE and cryoablation/ligation LA appendage CARDIAC DEFIBRILLATOR PLACEMENT 06/28/[address] defibrillator (#[id number]), programmed AAI-DDD 50-[address] Jefry Hernandez TOTAL KNEE ARTHROPLASTY Bilateral UMBILICAL HERNIA REPAIR POSTERIOR FUSION LUMBAR SPINE TOTAL SHOULDER REPLACEMENT 10/13/2020 - 11/11/2020 Left Medical History Medical History Date Comments Diabetes mellitus (HCC) Hypertension Primary osteoarthritis of left shoulder Gout Osteoarthritis Valvular heart disease History of atrial fibrillation Sustained ventricular tachycardia (HCC) 06/05/20 [facility] - cardioverted Sleep apnea CPAP compliant Type 2 diabetes mellitus Family History Medical History Relation Name Comments Atrial fibrillation Brother Atrial fibrillation Father Stroke Father Dementia Mother Relation Name Status Comments Brother Father (Age 82) Mother (Age 93) Social History Tobacco Use Types Packs/Day Years [...] on file Legal Sex Male 12:14 AM ABORIGINAL EDUCATION WORKER COORDINATOR Gender Identity Not on file Sexual Orientation Not on file Obstetrics History Last Filed Vital Signs Vital Sign Reading [...] 02/12/2025 9:46 AM CDT Plan of Treatment Health Maintenance Due Date Last Done Comments Depression Screening 1942 DTaP/Tdap/Td Vaccine (1 - Tdap) 1953 Hepatitis B Screening 01/07/1960 Pneumococcal vaccine 65+ (1 of 1 - PCV) 01/07/1992 Zoster Vaccine (1 of 2) 01/07/1992 Well Visit 65+ 2007 Fall Risk Assessment 10/19/2021 10/19/2020 Influenza Vaccine (#1) 2025 0, 06/17/2019, 04/17/2018 Medical Devices Implanted Type Area Medical Records Assistant Device Identifier Shelf Expiration Date Model / Serial / Lot EMKinetics [id number] 2 Chamber Df4 Inline Connector Radiopaque Pacemaker - [id number] - [id number] Implanted:Qty: 1 on 06/28/2020 by Jefry Hernandez MD at [facility] ICD Medtronic Inc [id number] 09/25/2021 [id number] / [id number] / Medtronic Cardiac Rhythm Mgmt [id number] Sprint Quattro Secure 62cm Tripolar Screw In Extendable - [id number] - [id number] Implanted:Qty: 1 on 06/28/2020 by Jefry Hernandez MD at [facility] Lead Medtronic Inc [id number] 12/03/2020 [id number] / [id number] / Medtronic Cardiac Rhythm Mgmt 5076-52 Capsurefix Novus 6.2fr 2mm 52cm Bipolar Screw In Implantable Latex Free - [id number] - [id number] Implanted:Qty: 1 on 06/28/2020 by Jefry Hernandez MD at [facility] Lead Medtronic Inc [id number] 03/18/2022 5076-52 / [id number] / Depuy Orthopaedics Inc [id number] Delta Xtend 4.5mm 42mm Lock Shoulder Glenoid Screw Bone Metaglene - Sn/A - [id number] Implanted:Qty: 1 on 10/18/2020 by Aurelio Garnica MD at [facility] Screw Left: Shoulder Depuy Orthopaedics Inc [id number] 06/13/2025 [id number] / N/A / Depuy Orthopaedics Inc [id number] Delta Xtend 4.5mm 24mm Shoulder Glenoid Screw Bone Metaglene - Sn/A - [id number] Implanted:Qty: 1 on 10/18/2020 by Aurelio Garnica MD at [facility] Screw Left: Shoulder Depuy Orthopaedics Inc [id number] 07/14/2025 [id number] / N/A / Depuy Orthopaedics Inc [id number] Delta Xtend 4.5mm 24mm Shoulder Glenoid Screw Bone Metaglene - Sn/A - [id number] Implanted:Qty: 1 on 10/18/2020 by Aurelio Garnica MD at [facility] Screw Left: Shoulder Depuy Orthopaedics Inc [id number] 07/14/2024 [id number] / N/A / Depuy Orthopaedics Inc [id number] Delta Xtend 4.5mm 36mm Lock Shoulder Glenoid Screw Bone Metaglene - Sn/A - [id number] Implanted:Qty: 1 on 10/18/2020 by Aurelio Garnica MD at [facility] Screw Left: Shoulder Depuy Orthopaedics Inc [id number] 08/14/2025 [id number] / N/A / Depuy Orthopaedics Inc [id number] Delta Xtend 27mm Cementless Shoulder Standard Component Glenoid Latex Free - Sn/A - [id number] Implanted:Qty: 1 on 10/18/2020 by Aurelio Garnica MD at [facility] Left: Shoulder Depuy Orthopaedics Inc [id number] 09/11/2025 [id number] / N/A / Depuy Orthopaedics Inc [id number] Glenosphere Xtend Lateralized 42mm +4mm Standard - Sn/A - [id number] Implanted:Qty: 1 on 10/18/2020 by Aurelio Garnica MD at [facility] Left: Shoulder Depuy Orthopaedics Inc [id number] 11/12/2023 [id number] / N/A / Depuy Orthopaedics Inc [id number] Global Unite 12mm 120mm Modular Shoulder Standard Stem Humeral - [id number] Implanted:Qty: 1 on 10/18/2020 by Aurelio Garnica MD at [facility] Left: Shoulder Depuy Orthopaedics Inc [id number] 08/14/2030 [id number] / / N/A Depuy Orthopaedics Inc [id number] Implant Shldr Xtend Mod Brenden 145epi Por Sz1 - Sn/A - [id number] Implanted:Qty: 1 on 10/18/2020 by Aurelio Garnica MD at [facility] Left: Shoulder Depuy Orthopaedics Inc 08/14/2030 [id number] / N/A / Depuy Orthopaedics Inc [id number] Delta Xtend 42mm Shoulder +3mm Standard Cup Humeral Polyethylene Latex Free - Sn/A - [id number] Implanted:Qty: 1 on 10/18/2020 by Aurelio Garnica MD at [facility] Left: Shoulder Depuy Orthopaedics Inc [id number] 08/14/2025 [id number] / N/A / Procedures Procedure Name Priority [...] ECG 12 lead (02/12/2025 9:56 AM CDT) Chelo Fontaine BULB PLANTER ECG ORDERABLES Final Resu lt * DEVICE [...] 3.7 seconds Episodes last 90 days/Comments: AF [place] 46.1%, the patient has been in atrial [...] appropriate for device measurements Rivera Boateng RN Luna Sapp NP CV CARDIAC SERVICES PROCEDURES Final Result * DEVICE CHECK - REMOTE (12/11/2024 7:01 AM CDT) Anatomical Region Laterality Modality Other 12/11/2024 7:01 AM CDT Narrative 12/15/2024 10:40 AM CDT Refer to Epic phone encounter. IFEANYI Bell Device Specialist ' Jefry Hernandez MD CV CARDIAC SERVICES PRO [...] 9.9 seconds Episodes last 90 days/Comments: AF [place] <0.1% One treated episode of VT on [...] appropriate for device measurements Karis Strickland RN us Jefry Hernandez MD CV CARDIAC SERVICES PRO CEDURES Final Result from Last 3 Months Insurance AETNA MEDICARE GOLD [facility] REF AET[employer] MEDICARE GOLD Advance Directives For more information, please contact: [phone] * Full Code (Latest Code Status on File) Date Activated Date Inactivated Comments 10/18/2020 5:26 PM 10/19/2020 5:27 PM Care Teams Genetics Nurse Relationship Specialty Start Date End Date Gary Rivas MD PCP - General 10/12/16 Aurelio Garnica MD [address] [address] Consulting Physician Orthopedic Surgery 10/18/20
--- OUTSIDE RECORDS SUMMARY | 2025-02-17 03:00 | XMS_ITS | Continuity of Care Document ---
Author Organization [facility] Address [address] [place] [address] Phone Care Team Providers Care Shrimp Header Name Role Phone Gab Cervantes Unavailable Unavailable Procedures Procedure Date Office/outpatient Visit, Est Corneal Pachymetry Visual Field Examination(s) Post-op Follow-up Visit Post-op Follow-up Visit Post-op Follow-up Visit Remove Cataract, Insert Lens Eye Exam Established Pt IOLMaster Advance Directives Directive Yes / No Effective Date File Name No Information Encounters Encounter Description Practice Location Reason(s) For Visit Diagnoses Date Provider Providers Copied on Encounter Office/outpat ient Visit, Est [facility], [address], [place], [place], [id number], [place] tel:[phone] SEC [facility] No Information [address] Helen De Guzman. [address] [place] [address], [address], [place]. tel:[phone] Referring Provider: Gab johnson, [facility] [address], [place], [address]. tel:[phone] [facility], [address], [place], [place], [id number], [place] tel:[phone] [facility] No Information Sep-1 6-200 8 Krishnasamy Gab. [address] [facility] [address], [place], [address], [place]. tel:[phone] Referring Provider: Gab johnson, [facility] [address] [address], [place], [address]. tel:[phone] [facility] Eye [facility], [address] [place] [address] [address], [place], [place], [id number], [place] tel:[phone] [facility] No Information May-3 0-200 8 Krishnasamy Gab. [facility] Corporate [facility] [address], [place], [address], [place]. tel:[phone] [facility] Eye [facility], [address] [place] [address] [address], [place], [place], [id number], [place] tel:[phone] [facility] No Information May-0 2-200 8 Krishnasamy Gab. [address] [place], [place] [address], [facility], [place]. tel:[phone] [facility], [address] [place] [address] [address], [place], [place], [id number], [place] tel:[phone] [facility] No Information Apr-2 5-200 8 Krishnasamy Gab. [facility] Corporate [address], [address], [place]. tel:[phone] Referring Provider: Gab johnson, [facility] Corporate Center [address], [address]. tel:[phone] [facility], [address] [place] [address] [address], [place], [place], [id number], [place] tel:[phone] [facility] No Information Apr-2 4-200 8 Krishnasamy Gab. [address] [place], [place] [address], [address], [place]. tel:[phone] [facility] Eye [facility], [address], [place], [place], [id number], [place] tel:[phone] [facility] No Information 9-200 8 Helen De Guzman. [address] [place] [address], [facility], [place]. tel:[phone] Referring Provider: Gab johnson, [address] [place] [address], [place], [place], [facility]. tel:[phone] Family History Family Member Type Diagnosis Age At Onset No Information Payers Payer name Insurance type Covered republican ID Authoriza tion(s) [employer] Mdcr Adv CI [id number] Social History Type Description Quantity Date Captured Comments Sex Male Smoking Status No Information Chief Complaint And Reason For Visit No Information Reason For Referral Reason For Referral No Information History Of Present Illness Encounter Date Complaint History Of Prese nt Illness No Information Functional Status Date Functional Assessmen t No Information Instructions Date Instruction Additional Infor mation No Information Assessments Type Assessment Date No Information Patient Care Teams Name Effective Dates (start - stop) Status Members No Information
--- OUTSIDE RECORDS SUMMARY | 2025-02-17 03:00 | XMS_ITS | Encounter Summary ---
Author Organization [facility] Address [address] [place] [address] Care Team Providers Care Pricing Consultant Name Role Phone Gary Rivas MD Primary Care Provider [phone] Gary Rivas MD Primary Care Provider [phone] Gary Rivas MD Primary Care Provider [phone] Aurelio Garnica MD Unavailable [phone] Encounter Details Date Type Department Care Team (Late st Contact Info) Description 07/26/2016 Orders Only [facility] ProviderDc MD [address] [place] [address] Social History Tobacco Use Types Packs/Day Years Used Date Smoking Tobacco: Never Alcohol Use Standard Drinks/Week Comments Yes 0 (1 standard drink = 0.6 oz pur e alcohol) Sex and Gender Information Value Date Recorded Sex Assigned at Not on file Legal Sex Male 12:14 AM AUTHORS MOTIVATIONAL Gender Identity Not on file Sexual Orientation Not on file documented as of this encounter Plan of Treatment Not on file documented as of this encounter Procedures Procedure Name Priority Date/Time Associated Diagnosis Comments CARDIOLOGY REPORT 07/26/2016 CARDIOLOGY REPORT 07/26/2016 documented in this encounter Results * CARDIOLOGY REPORT (07/26/2016) Anatomical Region Laterality Modality Other Narrative 07/26/2016 Ordered by an unspecified provider. us Historical Provider CV CARDIAC SERVICES PROCE DURES Final Result * CARDIOLOGY REPORT (07/26/2016) Anatomical Region Laterality Modality Other Narrative 07/26/2016 Ordered by an unspecified provider. us Historical Provider CV CARDIAC SERVICES PROCE DURES Final Result documented in this encounter Visit Diagnoses Not on filedocumented in this encounter Care Teams Pricing Consultant Relationship Specialty Start Date End Date Gary Rivas MD PCP - General 10/12/16 Gary Rivas MD PCP - General 08/16/16 10/11/16 Gary Rivas MD PCP - General 07/26/16 08/15/16 Aurelio Garnica MD [address] [facility] [address] [place] [address] Consulting Physician Orthopedic Surgery 10/18/20 documented as of this encounter
--- OUTSIDE RECORDS SUMMARY | 2025-02-17 03:00 | XMS_ITS | Clinical Summary ---
Author Organization [facility] Address [address] [place] [address] Care Team Providers Care Optical Brightener Maker Helper Name Role Phone Unavailable Primary Care Provider Unavailabl e Source Comments [facility],non-owned Affiliates and Associated Physician Practices is amultiple site organization consisting of ambulatory clinics and hospital sitesin [place], [place], [place] and [place]. This disclosure is being madepursuant to the Care Everywhere program and may not contain all information available regarding this patient. Last updated 18.[facility] [employer] Social History Tobacco Use Types Packs/Day Years Used Date Smoking Tobacco: Never Assessed Sex and Gender Information Value Date Recorded Sex Assigned at Not on file Legal Sex Male 4:39 PM CDT Gender Identity Not on file Sexual Orientation Not on file Plan of Treatment Health Maintenance Due Date Last Done Comments DTAP/TDAP/TD VACCINES (1 - Tdap) 1961 PNEUMOCOCCAL VACCINE 50+ (1 of 1 - PCV) 01/07/1992 ZOSTER VACCINE (1 of 2) 01/07/1992 Respiratory Syncytial Virus (RSV) Vaccine Pt: or over 60 yrs (1 - 1-dose 75+ series) 2017 COVID-19 VACCINE ( - 2023-2 5 season) 2024 DEPRESSION SCREENING 07/15/2024 INFLUENZA VACCINE (#1) 2025 HEPATITIS B VACCINE Aged Out No longe r eligible based on patient's age to complete this topic HIB VACCINE Aged Out No longer eligi ble based on patient's age to complete this topic HPV VACCINE Aged Out No longer eligi ble based on patient's age to complete this topic MENINGOCOCCAL (Group B) VACC INE SHARED DECISION-MAKING Aged Out No longer eligibl e based on patient's age to complete this topic MENINGOCOCCAL GROUPS A/C/Y/W VACCINE Aged Out No longer eligible b ased on patient's age to complete this topic Insurance COVENTRY MEDICARE Advance Directives * Full Code (Latest Code Status on File) Date Activated Date Inactivated Comments 11/05/2014 5:30 PM 11/13/2014 11:45 AM
--- OUTSIDE RECORDS SUMMARY | 2025-02-17 03:00 | XMS_ITS | Clinical Summary ---
Author Organization [facility] Address [address] [place] [address] Phone Care Team Providers Care Percolator Operator Name Role Phone Gary Rivas MD Primary Care Provider [phone] Allergies No known active allergies Medications lisinopril (PRINIVIL) 20 mg tablet Take 20 mg by mouth Daily LATE. Active metFORMIN (GLUCOPHAGE) 500 mg tablet Take 500 mg by mouth 2 times daily with meals. Active Fish Oil-Melstone-3 Fatty Acids 300-500 mg Capsule Take by mouth. Activ e niacin (NIASPAN ER) 1,000 mg Extended Release 24 hour tablet Take 1,000 mg by mouth daily at bedtime. Active cyclobenzaprine (FLEXERIL) 10 mg tablet Take 10 mg by mouth 3 times daily as needed for Spasm. Active aspirin (SOFIA) 325 mg tablet Take 325 mg by mouth Daily LATE. Active diazepam (VALIUM) 5 mg tablet Take 1 Tab (5 mg) by mouth every 6 hours. 5 Active docusate sodium (COLACE) 100 mg capsule Take 1 Cap (100 mg) by mouth 2 times daily. 5 Active enoxaparin (LOVENOX) 40 mg/0.4 mL injection Inject 0.4 mL (40 mg) by subcutaneous injection every 24 hours. 0 5 Active oxyCODONE-aceta minophen (PERCOCET) 5-325 mg tablet Take 1-2 Tabs by mouth every 4 hours as needed for Pain. Max Daily Amount: 12 Tabs 0 5 Active Active Problems Problem Noted Date Diagnosed Date Spondylolisthesis of lumbar region 11/02/2014 Social History Tobacco Use Types Packs/Day Years Used Date Smoking Tobacco: Never Alcohol Use Standard Drinks/Week Comments Yes 17.5 (1 standard drink = 0.6 oz pure alcohol) social Sex and Gender Information Value Date Recorded Sex Assigned at Not on file Legal Sex Male 11:08 AM CDT Gender Identity Not on file Sexual Orientation Not on file Last Filed Vital Signs Vital Sign Reading Time Taken Comments Blood Pressure 125/61 11/05/2014 2:00 PM CDT Pulse 94 11/05/2014 2:00 PM CDT Temperature 36.6 C (97.8 F) 11/05/2014 2:00 PM CDT Respiratory Rate 18 11/05/2014 2:00 PM CDT Oxygen Saturation 98% 11/05/2014 2:00 PM CDT Inhaled Oxygen Concentration - - Weight 101 kg (222 lb 9.6 oz) 11/01/2014 9:06 AM CDT Height 177.8 cm (5' 10) 10/19/2014 1:07 PM CDT Body Mass Index 31.94 10/19/2014 1:07 PM CDT Plan of Treatment Health Maintenance Due Date Last Done Comments DTAP/TDAP/TD VACCINES (1 - Tdap) 1961 PNEUMOCOCCAL VACCINE 50+ YEARS (1 of 1 - PCV) 01/06/19 92 ZOSTER VACCINE (1 of 2) 01/07/1992 RSV VACCINE (60+ or ) (1 - 1-dose 75+ series) 2017 INFLUENZA VACCINE (#1) 2025 Medical Devices Implanted Type Area Sole Inker Device Identifier Shelf Expiration Date Model / Serial / Lot Cap Lock Georgiana 124.000 - [id number] Implanted:Qty : 6 on 11/01/2014 by Richi Brantley MD at [facility] End N/A: Spine Lumbar GLOBUS [employer] [id number] / / 2 OCT 06, 2014 Paste Inqu Mix+ 10ml Iqsp-Pp-110 - [id number] Implanted:Qty : 4 on 11/01/2014 by Richi Brantley MD at [facility] Putty N/A: Spine Lumbar [employer] 11/17/2015 IQSP-PP-11 0 / / [id number] Paste Inqu Mix+ 5ml Iqsp-Pp-105 - [id number] Implanted:Qty : 1 on 11/01/2014 by Richi Brantley MD at [facility] Putty N/A: Spine Lumbar [employer] 01/27/2016 IQSP-PP-10 5 / / [id number] Francisco Georgiana 5.5 Crv 65mm 124.665 - [id number] Implanted:Qty : 2 on 11/01/2014 by Richi Brantley MD at [facility] Francisco N/A: Spine Lumbar G[employer]ICAL 124.665 / / 2 OCT 06, 2014 Screw Georgiana Pedicle 6.5x45mm 124.465 - [id number] Implanted:Qty : 6 on 11/01/2014 by Richi Brantley MD at [facility] Screw N/A: Spine Lumbar G[employer] 124.465 / / 2 OCT 06, 2014 Screw Georgiana Pedicle 6.5x50mm 124.466 - [id number] Implanted:Qty : 1 on 11/01/2014 by iRchi Brantley MD at [facility] Screw N/A: Spine Lumbar G[employer] 124.466 / / 2 OCT 06, 2014 Sealant Floseal W/ Adptr 10ml [id number] - [id number] Implanted:Qty : 2 on 11/01/2014 by Richi Brantley MD at [facility] Sealant N/A: Spine Lumbar GARCIA- BIOSCIENCE 01/12/2016 [id number] / / [id number] Sealant Floseal W/ Adptr 10ml [id number] - [id number] Implanted:Qty : 1 on 11/01/2014 by Richi Brantley MD at [facility] Sealant N/A: Spine Lumbar GARCIA- BIOSCIENCE 01/12/2016 [id number] / / [id number] Cnctr-T Georgiana 48-61mm 124.915 - [id number] Implanted:Qty : 1 on 11/01/2014 by Richi Brantley MD at [facility] Spine N/A: Spine Lumbar [employer] 124.915 / / 2 OCT 06, 2014 Bilateral Knee Advance Directives For more information, please contact: [phone] * Full Code (Latest Code Status on File) Date Activated Date Inactivated Comments 11/01/2014 3:30 PM 11/05/2014 6:05 PM * Full Code Date Activated Date Inactivated Comments 11/01/2014 9:31 AM 11/01/2014 3:30 PM Care Teams Percolator Operator Relationship Specialty Start Date End Date Gary Rivas MD PCP - General Family Practice 10/19/14
--- OUTSIDE RECORDS SUMMARY | 2025-02-17 03:00 | XMS_ITS | Continuity of Care Document ---
Author Organization [facility] Address [address] [place] [address] Phone Care Team Providers Care Vice President Of Human Resources Name Role Phone Aurelio Garnica MD Unavailable Unavailable Allergies, Adverse Reactions, Alerts Substance Reaction Status Criticality No Known Allergies Active No Inform ation Medications Medication Instructions Dosage Effective Dates (start - stop) Status Comments metformin 500 mg tablet - Active metoprolol succinate ER 50 mg tablet,extended release 24 hr - Active lisinopril 20 mg tablet - Active aspirin 325 mg tablet - Active bupropion HCl XL 300 mg 24 hr tablet, extended release - Active cyanocobalamin (vitamin B-12) 5,000 mcg capsule - Active Vitamin D3 50 mcg (2,000 unit) tablet - Active multivitamin tablet - Active Procedures Procedure Date Global/Postop followup visit Global/Postop followup visit Global/Postop followup visit X-ray exam shoulder complete, minimum 2 views Total Shoulder Replcmt X-ray exam shoulder minimum 2 views [place] [facility] [place] Advance Directives Directive Yes / No Effective Date File Name No Information Encounters Encounter Description Practice Location Reason(s) For Visit Diagnoses Date Provider Providers Copied on Encounter [facility], [address], [place], [place], [id number], [place] tel:[phone] [facility] Left shoulder (chief complaint) Presence of left artificial shoulder joint 1 Nahun Carey. [address], [place], [place], [address] , [place]. tel:[phone] Referring Provider: Aurelio Diego, [address], [place], [address] . tel:[phone] [facility], [address], [place], [place], [id number], [place] tel:[phone] [facility] Left shoulder (chief complaint) Presence of left artificial shoulder joint 1 Nahunjenifer Carey. [address], [place], [place], [address] , [place]. tel:[phone] Referring Provider: Aurelio Diego, [address] [place] [address] [address], [place], [address] . tel:[phone] [facility], [address] [place] [address], [place], [place], [id number], [place] [phone] [facility] Left shoulder (chief complaint) Presence of left artificial shoulder joint 1 Nahun Carey. [address], [place], [place], [id number] , [place]. tel:[phone] Referring Provider: Aurelio Diego, [address], [place], [address] . tel:[phone] [facility], [address] [address], [place], [place], [id number], [place] [phone] [facility] No Information 0 1 Nahun [address]. [address], [place], [place], [address] , [place]. tel:[phone] Referring Provider: Aurelio Diego, [address], [place], [address] . 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 [address] [facility] [address], [place], [place], [address] , . tel: [phone] Referring Provider: Aurelio Diego, [address], [place], [address] . tel:[phone] Family History Family Member Type Diagnosis Age At Onset Brother Problem (finding) Hypertension Father Problem (finding) Hypertension Father Problem (finding) Stroke Mother Problem (finding) Diabetes Mother Problem (finding) Osteoarthritis Payers Payer name Insurance type Covered libertarian ID Laci perez(s) [employer] [place] [id number] Social History Type Description Quantity Date Captured Comments Alcohol Use Details Unknown Caffeine Use Details Unknown Tobacco Use Status Current non-smoker Smoking Status Never smoker Non-Smoking Tobacco Use Details : No Details Available : No Details Available Sex Male Vital Signs Date / Time: Height Weight BMI Pulse Rate Blood Pressure Temperature Respiratory Rate Body Surface Area Head Circumference Head Circ. Percentile [place]./[place]. Percentile BMI percentile Pulse Ox Inhaled Ox 2:10 PM 69.00 in 107.048 kg (236.00 lbs) 34.8 5 kg/m kenneth (2) Chief Complaint And Reason For Visit From encounter dated '01/18/2021 14:25'. Left shoulder (chief complaint). Description: Patient comes in today for follow up of his left reverse total shoulder arthroplasty Reason For Referral Reason For Referral No Information Plan Of Treatment Date Type Action Status Referral Ordered: X-ray exam shoulder complete, minimum 2 views LT ordered Referral Ordered: X-ray exam shoulder minimum 2 views LT ordered History Of Present Illness Encounter Date Complaint History Of Prese nt Illness Left shoulder Patient comes in today for follow up of his left reverse total shoulder arthroplasty Left shoulder Patient comes in today for follow up of his left reverse total shoulder arthroplasty Left shoulder Patient comes in today for follow up of his left reverse total shoulder arthroplasty Shoulder Pain Location: should er. Additional information: Patient comes in today for left shoulder pain. Functional Status Date Functional Assessmen t No Information Instructions Date Instruction Additional Infor mation No Information Assessments Type Assessment Date assessment Presence of left artificial shou lder joint Patient Care Teams Name Effective Dates (start - stop) Status Members No Information
--- NOTE | 2025-02-17 09:00 | ECG_ITS ---
Test Date: 2025-02-17 09:37:10 Measurements Intervals [place] Rate: 68 P: 0 MA: 0 QRS: -85 QRSD: 165 T: 88 QT: 479 QTc: 513 Interpretive Statements ELECTRONIC VENTRICULAR PACEMAKER BASELINE ARTIFACT- I, II, III NO FURTHER INTERPRETATION IS POSSIBLE ATYPICAL ECG No previous ECG available for comparison Electronically Signed On 02-17-2025 09:52:51 CDT by Kaden Cast D.O.
--- NOTE | 2025-02-17 10:00 | ECG_ITS ---
Test Date: 2025-02-17 11:17:50 Measurements Intervals [place] Rate: 69 P: -1 [place]: 179 QRS: 269 QRSD: 165 T: 77 QT: 503 QTc: 542 Interpretive Statements ELECTRONIC ATRIAL PACEMAKER ELECTRONIC VENTRICULAR PACEMAKER NO FURTHER INTERPRETATION IS POSSIBLE ATYPICAL ECG Compared to ECG 02/17/2025 09:37:10 No significant changes Electronically Signed On 02-17-2025 11:34:49 CDT by Kaden Cast D.O.
[2025-02-17 10:19] LABS: Anion Gap 10 mmol/L (4-12); Blood Urea Nitrogen 27 mg/dL (9-20); Calcium 9.4 mg/dL (8.4-10.2); Carbon Dioxide 24 mmol/L (22-30); Chloride 103 mmol/L (98-107); Estimated CRCL calculation 55 ml/min; Estimated Glomerular Filt Rate > 60; Glucose 140 mg/dL (65-110); Magnesium 1.9 mg/dL (1.6-2.3); Potassium 4.4 mmol/L (3.4-5.0); Sodium 137 mmol/L (137-145)
--- NOTE | 2025-02-17 11:26 | P.PCNCC_ITS ---
Cardiac Cath Procedure Note Date of procedure:: 02/17/25 Performing physician:: Gary Chopra MD Indication:: Atrial fibrillation Brief clinical history:: This is a 85-year-old man with atrial fibrillation which began several months ago. He has a history of a nonischemic cardiomyopathy and has an implantable defibrillator. The device demonstrated onset of atrial fibrillation in October or November of this year. 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 For this reason GIANNI/cardioversion has been recommended. Procedure Procedure performed:: Gianni/cardioversion Sedation/Medication given:: Intravenous propofol total dosage of 100 mg Estimated blood loss:: None Procedure note:: Patient was brought to the cardiac catheterization lab in the postabsorptive state in the holding area the defibrillator patches were in the AP position. The [employer] rep was in attendance and not turned off the defibrillator. The patient was in atrial fibrillation with a intrinsic heart rate in the 50s. He received or pharyngeal benzocaine spray after this he was sedated with propofol with 60 mg he was sedated enough to perform esophageal ECHO. The GIANNI probe was placed into the hypopharynx and easily advanced into the esophagus. Imaging was performed of the left atrium showing marked left atrial enlargement but no evidence of visible thrombus in the atrium or in its appendage. The GIANNI probe was then withdrawn. He received an additional 30 mg of propofol for a total of 100 mg after this he was counter shocked with 200 joules in a synchronized fashion x1 shock which restored sinus rhythm with a heart rate in the 60s. I elected to increase his lower rate limit on his pacemaker to 70 beats per minute in hopes of keeping his atrium entrained. We will observe his recovery from sedation and then discharged. Findings:: As above Conclusion:: Successful uncomplicated GIANNI/cardioversion terminate atrial fib restoring sinus rhythm with a heart rate around 60 beats per minute using 2 joules x1 shock. Increase the lower rate limit of his pacemaker to 70 beats per minute so he is now AV sequential pacing. Gary Chopra MD [facility]
[2025-02-17] MEDS: SODIUM CHLORIDE 0.9% IV 500 ML 999 ML (12:28)
== END 2025-02-17 12:20 | disposition home or self-care (01) ==
PROVIDERS: PCP Family Medicine; Visit Provider Specialist
PROC: 5A2204Z Restoration of Cardiac Rhythm, Single (ICD-10-PCS; principal; 2025-02-17 10:30)
PROC: (CPT 93312; 2025-02-17 10:30)
DX: I48.91 Unspecified atrial fibrillation (principal); I35.8 Other nonrheumatic aortic valve disorders; I49.9 Cardiac arrhythmia, unspecified; I42.8 Other cardiomyopathies; I10 Essential (primary) hypertension; E11.9 Type 2 diabetes mellitus without complications; M19.012 Primary osteoarthritis, left shoulder; I47.20 Ventricular tachycardia, unspecified; G47.30 Sleep apnea, unspecified; G47.33 Obstructive sleep apnea (adult) (pediatric); Z79.84 Long term (current) use of oral hypoglycemic drugs; Z99.89 Dependence on other enabling machines and devices; Z98.890 Other specified postprocedural states; Z95.810 Presence of automatic (implantable) cardiac defibrillator
CPT/HCPCS: 36415; 80048; 83735; 92960; 93312; 93320; 93325; J2704; J7040